=== PATIENT | female | born 1945 | race Caucasian/White ===

== ENCOUNTER → 2024-08-13 11:57 | Outpatient (REF) | payer OTHER, SELFPAY | LOC: HWWDC 11:57 | PROVIDERS: ATTENDING PHYSICIAN Family Medicine | DX: Z12.31 Encounter for screening mammogram for malignant neoplasm of breast (principal) | CPT/HCPCS: 77063; 77067 ==

== ENCOUNTER → 2024-12-26 11:48 | Outpatient (REF) | payer OTHER, SELFPAY | LOC: RAD 11:48 | PROVIDERS: ATTENDING PHYSICIAN Registered Nurse; FAMILY PHYSICIAN Family Medicine | DX: M25.561 Pain in right knee (principal); W10.9XXA Fall (on) (from) unspecified stairs and steps, initial encounter; M54.2 Cervicalgia | CPT/HCPCS: 72040; 73564 ==

== ENCOUNTER 2025-01-01 18:39 | Emergency (ER) | payer OTHER, SELFPAY ==
[2025-01-01 19:10] VITALS: BP 137/70
[2025-01-01 19:28] LABS: % Basophils 0.6 % (0-2); % Eosinophils 1.2 % (0-6); % Immature Granulocytes 0.5 % (0-0.5); % Lymphocytes 10.6 % (20.5-51.1); % Monocytes 12.3 % (1.7-9.3); % Neutrophils 74.8 % (42.2-75.2); Absolute Basophils 0.1 10^3/uL (0-0.2); Absolute Eosinophils 0.1 10^3/uL (0-0.7); Absolute Immature Granulocytes 0.1 10^3/uL (0-0.05); Absolute Lymphocytes 1.2 10^3/uL (1.2-3.4); Absolute Monocytes 1.4 10^3/uL (0.1-0.6); Absolute Neutrophils 8.3 10^3/uL (1.4-6.5); Hematocrit 35.8 % (37.0-47.0); Hemoglobin 12.3 g/dL (12.0-16.0); Mean Corp Hgb Conc. 34.4 g/dL (33.0-37.0); Mean Corpuscular Hgb 32.5 pg (27.0-31.0); Mean Corpuscular Volume 94.5 fL (81.0-99.0); Mean Platelet Volume 8.4 fL (7.4-10.4); Nucleated Red Blood Cells % 0 %; Platelet Count 379 10^3/uL (130-400); Red Blood Cell Count 3.79 10^6/uL (4.20-5.40); Red Cell Dist. Width 12.7 % (11.5-14.5); White Blood Cell Count 11.1 10^3/uL (4.8-10.8)
[2025-01-01 19:47] LABS: ALT (SGPT) 13 U/L (0-35); AST (SGOT) 20 U/L (14-36); Alkaline Phosphatase 87 U/L (38-126); Blood Urea Nitrogen 19 mg/dl (7-17); Carbon Dioxide 26 mmol/L (22-30); Chloride 100 mmol/L (98-107); Glucose 143 mg/dl (70-99); Potassium 4.4 mmol/L (3.5-5.1); Sodium 135 mmol/L (135-145); Total Protein 6.7 g/dl (6.3-8.2); eGFR > 60.00
[2025-01-01 22:12] VITALS: BP 138/64
[2025-01-01 22:43] LABS: Erythrocyte Sed Rate 31 mm/hour (0-20)
--- NOTE | 2025-01-01 22:50 | ED.GENMED ---
History of Present Illness
General
Chief Complaint: Musculo-Skeletal Complaint
Source: patient
Time Seen by Provider: 01/01/25 22:20
History of Present Illness
History of Present Illness:
79 yr old female presents to the ED with complaints of right knee pain. The patient had a knee replacement performed here by Dr. Leung on December 08 and did well. Then, 2 weeks ago she 'fell' also described as 'slid' down approximately 7 steps
landing on her back. She had mild pain in the right knee since then described as feeling 'a little bit stiffer', but was still able to perform therapy. However, last night, she noted that the pain in her right knee has gotten progressively worse
such that she has difficulty walking, getting up off the toilet, etc. without assistance. She has taken pain medication with moderate relief of symptoms. She describes the pain level as 1-2 at full extension described as 'achy', but significantly
worse with flexion. She thought it looked a little bit red and felt warm earlier today but feels that that has improved upon inspection now. She denies fever, chills, diaphoresis, nausea, vomiting, numbness, tingling, or other complaints.
Past History
Past History
ED Past Medical History: HTN and Hypercholesterolemia
ED Past Surgical History: Orthopedic
Social History
Tobacco: Non-smoker
Alcohol: None
Drug: None
Personal:
Living: with family
Phy Exam
Physical Exam
Physical Exam:
GENERAL: Alert , in no apparent distress
EYE: pupils equal and reactive
NECK: Supple, no significant adenopathy.
ENT: o/p clr, mmm.
CARDIAC: Regular rate and rhythm .
LUNGS: Clear breath sounds bilaterally, no acute respiratory distress, no wheezes/rales/rhonchi
NEUROLOGICAL: Alert and oriented, no focal neuro deficits
SKIN: Warm and dry, skin intact. Incision with steristips in place, no drainage/blood.
MUSCULOSKELETAL: Mild edema R knee area (expected postop), well perfused no warmth felt, min erythema. No ttp noted. Pt has limited flexion due to pain.
PSYCH: Normal and appropriate interaction.
Course
Orders/Labs/Results
Orders:
Orders
01/01/25 18:44
Knee, Right 4 or More Views [CR Knee- Right 4 Or More View*] Stat
Comment:
Reason For Exam: pain
01/01/25 19:20
C-Reactive Protein Urgent
Comment: ADD ON
Complete Blood Count/With Diff Urgent
Comprehensive Metabolic Panel Urgent
Erythrocyte Sed Rate Urgent
Comment: ADD ON
01/01/25 22:22
Add On- LAB Urgent
Tests Added?: CRP, ESR
01/01/25 23:25
Knee Immobilizer Right-Treatme ONCE
Oxycodone [Roxicodone] 5 mg PO NOW STA
Abnormal Lab Results
01/01/25
19:20
WBC 11.1 H 10^3/uL
(4.8-10.8)
RBC 3.79 L 10^6/uL
(4.20-5.40)
Hct 35.8 L %
(37.0-47.0)
MCH 32.5 H pg
(27.0-31.0)
Abs Immat Gran (auto) 0.1 H 10^3/uL
(0-0.05)
Absolute Neuts (auto) 8.3 H 10^3/uL
(1.4-6.5)
Absolute Monos (auto) 1.4 H 10^3/uL
(0.1-0.6)
Lymphocytes % 10.6 L %
(20.5-51.1)
Monocytes % 12.3 H %
(1.7-9.3)
ESR 31 H mm/hour
(0-20)
BUN 19 H mg/dl
(7-17)
Glucose 143 H mg/dl
(70-99)
C-Reactive Protein 84.20 H mg/L
(0.0-10.00)
01/01/25 19:20
01/01/25 19:20
Vital Signs
Initial and Last Documented VS:
Initial Vital Signs
Temp Pulse Resp BP Pulse Ox
100.0 F 100 18 137/70 95
01/01/25 19:10 01/01/25 19:10 01/01/25 19:10 01/01/25 19:10 01/01/25 19:10
Last Documented Vital Signs
Temp Pulse Resp BP Pulse Ox
99.2 F 83 18 131/63 97
01/01/25 22:12 01/01/25 23:57 01/01/25 19:10 01/01/25 23:57 01/01/25 23:57
*Critical Care Note
Total Time (30-74mins, 75-104mins- exclusive of procedures): Not Applicable
Update Note
Update Note:
Patient presents to the Emergency Department with ____knee pain
Number and Complexity of Problems Addressed at the Encounter
� Chronic conditions affecting care:
� Acute Exacerbation and/or Progression of Chronic Illness:
� Differential Diagnosis includes: But not limited to muscular spasm, muscle strain, ligament strain, septic arthritis, fracture, etc. etc.
Amount and/or Complexity of Data to be Reviewed and Analyzed
� I performed an independent evaluation of and my interpretation is:
EKG:
CT:
Xrays: Read by me unremarkable
Laboratory Studies: Generally unremarkable, ESR and CRP elevated as would be expected postoperatively
Other:
� Review of other/old records reveals:
� Clinical information was obtained by an independent historian:
� Prescriptions/Medications Considered but not given:
� Further testing considered but not performed:
Risk of Complications and/or Morbidity or Mortality of Patient Management
� Social determinants of health affecting care:
� Discussion with other providers (PCP, Hospitalists, Consultants, etc):
� Escalation of care including admission/observation vs risk of discharge considered: Case discussed with Dr. Hills, I also sent him photos of patient's knee and my exam here as well as all the x-rays. Labs and vitals reviewed
as well. We both have a very low and for septic arthritis, and would not recommend arthrocentesis or other testing at this time. Rather, he recommends follow-up with him tomorrow morning between 9 and 10 AM in the ambulatory center and apply a
knee brace in the meantime. Patient is extremely nontoxic and well-appearing and agreeable to this plan.
ED Attending Note
-
Portions of this chart may have been created with voice recognition software.� Occasional wrong word or��sound alike� substitutions may have occurred due to the inherent limitations of voice recognition software.
Discharge Plan
Departure
Patient Disposition: Home (Routine Discharge)
Date of Disposition: 01/01/25
Time of Disposition: 23:28
Patient with high blood pressure during this ER visit?: Yes
Condition: Good
Discharge Problem:
Acute knee pain
Instructions: Knee Immobilizer (DC), Knee Pain (DC), BLOOD PRESSURE
Prescriptions:
No Action
Aspir 81
81 mg PO BID
pravastatin [Pravachol] 40 MG tablet
40 mg PO DAILY
Hydrochlorothiazide
20 mg PO DAILY
ondansetron 4 MG tablet,disintegrating
4 mg PO TIDPRN PRN (Reason: nausea) Qty: 12 0RF
Referrals:
Jn Wolff CRNP [Family Provider] -
Activity Restrictions/Additional Instructions:
PLEASE SEE DR. HILLS IN THE AMBULATORY CENTER BETWEEN 9 AND 10 AM TOMORROW MORNING, SUNDAY. HE WILL BE EXPECTING YOU AT THAT TIME. IF YOU DEVELOP FEVER, CHILLS, SWEATS, INCREASING PAIN, REDNESS, DRAINAGE, OR OTHER WORRISOME SIGNS, PLEASE RETURN
TO THE ER IMMEDIATELY.
Interventions
Interventions:
*Risk Screen - Suicide Last Done: 01/01/25 19:15
*General Assessment Last Done: 01/01/25 22:06
*Neglect/Abuse Screening Last Done: 01/01/25 19:15
*ED- Fall Risk Assessment Last Done: 01/01/25 22:06
*ED COVID-19 Vaccine History Last Done: 01/01/25 22:06
*Nursing Disposition Last Done: 01/02/25 00:18
ED-Musculoskeletal Assessment Last Done: 01/01/25 22:17
Discharge Date and Time
Discharge Date/Time: 01/02/25 00:18
Print Language: ANDORRAN
[2025-01-01] MEDS: ROXICODONE 5 MG PO (23:55)
[2025-01-01 23:57] VITALS: BP 131/63
== END 2025-01-02 00:18 | disposition home or self-care (01) ==
LOC: EMR 18:39
PROVIDERS: Student in an Organized Health Care Education/Training Program; EMERGENCY PHYSICIAN Emergency Medicine; FAMILY PHYSICIAN Registered Nurse
DX: M25.561 Pain in right knee (principal); Z96.651 Presence of right artificial knee joint; I10 Essential (primary) hypertension; E78.00 Pure hypercholesterolemia, unspecified
CPT/HCPCS: 29505; 99284; 73564; 80053; 85025; 85652; 86140

== ENCOUNTER → 2025-01-02 10:29 | Outpatient (REF) | payer OTHER, SELFPAY ==
[2025-01-02 11:41] LABS: Body Fluid Mononuclear 5.3 %; Body Fluid Polymorphonuclear 94.7 %; Body Fluid WBC 52860 /CUMM
[2025-01-02 11:52] LABS: Body Fluid Second Tech AMA
== END ==
LOC: REG 10:29
PROVIDERS: ATTENDING PHYSICIAN Specialist; FAMILY PHYSICIAN Family Medicine
DX: M25.461 Effusion, right knee (principal)
CPT/HCPCS: 87015; 87070; 87077; 87186; 87205; 89051; 89060

== ENCOUNTER 2025-01-02 12:34 | Inpatient (IN) | payer OTHER, SELFPAY ==
[2025-01-02] VITALS (13 sets, daily range): BP systolic 116–153; BP diastolic 58–91; BMI 26.6
[2025-01-02] MEDS: TYLENOL 650 MG PO ×2 (13:14→19:42)
[2025-01-02] MEDS: NORMOSOL-R/PLASMALYTE-A 1000 IV (13:15)
[2025-01-02] MEDS: SUBLIMAZE 50 MCG IV (17:17)
[2025-01-02] MEDS: SUBLIMAZE 25 MCG IV ×3 (17:31→18:24)
[2025-01-02] MEDS: COLACE 100 MG PO (19:42)
[2025-01-02] MEDS: SENOKOT 17.2 MG PO (19:42)
[2025-01-02] MEDS: ROXICODONE 10 MG PO (19:43)
[2025-01-02] MEDS: DILAUDID 0.5 MG IV (21:11)
[2025-01-02] MEDS: BACTROBAN 2% OINTMENT 1 APPLIC NASAL (21:12)
[2025-01-03] MEDS: TYLENOL 650 MG PO ×6 (00:46→21:53)
[2025-01-03] MEDS: ROXICODONE 10 MG PO ×6 (00:47→21:53)
[2025-01-03 03:05] VITALS: BP 115/64
[2025-01-03 07:20] VITALS: BP 140/74
[2025-01-03] MEDS: THERAGRAN 1 TABLET PO (09:13)
[2025-01-03] MEDS: SENOKOT 17.2 MG PO ×2 (09:13→20:17)
[2025-01-03] MEDS: COLACE 100 MG PO ×2 (09:14→20:17)
[2025-01-03] MEDS: ORETIC 25 MG PO (09:14)
[2025-01-03] MEDS: BACTROBAN 2% OINTMENT 1 APPLIC NASAL ×2 (09:14→21:54)
[2025-01-03] MEDS: ASPIRIN 325 MG PO (09:14)
[2025-01-03] MEDS: PRAVACHOL 40 MG PO (09:14)
--- NOTE | 2025-01-03 09:52 | CM ---
ict development manager reviewed patient's chart and met with patient and daughter at bedside, patient lives with her spouse in a 2 story home with one step to enter, patient is independent with adl's and ambulates with a walker following a recent right total
knee arthroplasty, patient reports that she has visiting nurse coming to home but is not sure of the agency, options reviewed and patient is agreeable to [facility], referral sent to [facility].
PCP: Dr Mayo with [facility]
Pharmacy: [facility] in [place]
Plan; Home with [facility] when stable.
--- NOTE | 2025-01-03 10:05 | CON.ID ---
Consultation
-
Date/Time Consultation Requested: 01/02/2025 1539
Date/Time Consultation Performed: 01/03/2025 0936
Requesting Provider: Familia
Performing Provider: Cheri
Reason for Consultation: Right knee PJI
Chief Complaint / Past History
History of Present Illness
Felicia Rivera is a 79-year-old female being evaluated at the request of Dr. Robertson in regards to a right knee prosthetic joint infection. History is obtained from chart review, on the patient interview.
The patient reports she underwent a right knee replacement on 12/08/2024. She notes that the postop period she did well, but approximate 2 weeks ago she 'fell' versus 'slid' down approximately 7 steps at home and landed on her back. She notes mild
right knee pain since that time, but also admitted to some shoulder neck pain also. Since the fall, she has noted some increasing stiffness of the right knee, but on 12/31 she noted marked increase in pain and difficulty with ambulation. She also
notes that the knee has been progressively red and swollen since the fall. She denies any fevers or chills. She presented to the emergency room on 01/01 for further evaluation. Imaging was performed which was nonrevealing, but she did have a
low-grade leukocytosis. She was seen by Orthopedics yesterday and joint aspiration was performed. Because of increased cell count, she was taken to the OR yesterday for washout and poly exchange. Infectious Diseases is asked to comment on further
antibiotic management.
Past History
Additional Past Medical History:
Osteopenia
HTN
HLD
Hx left breast ductal adenocarcinoma
Additional Past Surgical History:
Left knee replacement
Right knee replacement (12/04/2024)
Left lumpectomy
Allergy History:
latex [Latex] Allergy (Verified 01/02/25 12:33)
Rash
hayfever Allergy (Uncoded 01/02/25 12:36)
nasal symptoms
Medications Reviewed: Yes
Current Antibiotics:
None
Social History
Tobacco: Non-Smoker
Alcohol: None
Drug: None
Living: With Family
Employment: Retired
Family History
Family History: Not Pertinent
Review of Systems
Vital Signs
Temp Pulse Resp BP Pulse Ox
97.6 F 63 18 140/74 98
01/03/25 07:20 01/03/25 07:20 01/03/25 07:20 01/03/25 07:20 01/03/25 07:20
Physical Exam
Physical Exam
Constitutional: No Acute Distress, Comfortable and Non-toxic
Eyes: No Conjunctival Hemorrhage and Sclera Anicteric
Oral: No Thrush and No Ulcers
Cardiovascular: Regular Rate and S1/S2; Negative S3/S4 or Murmur
Pulmonary: Clear; Negative Wheezes, Rales or Rhonchi
Gastrointestinal: Soft, Non Tender, Non Distended and Normal Bowel Sounds
Genito-Urinary: Negative Jackman
Extremities: Edema (RLE), Erythema (Right knee area) and Pulses; Negative Venous Insufficiency
Musculoskeletal: Joint Swelling (Right knee)
Skin: Warm and Dry; Negative Rash or Jaundice
Neurological: Awake and Alert
Psychological: Calm
.
Microbiology Results
Micro:
01/02/25 17:00 Body Fluid Culture - Preliminary
Knee - Right Gram Stain - GNR's
01/01/25
19:20
ESR 31 H
C-Reactive Protein 84.20 H
Right knee aspirate
01/02/25
09:53
Fluid WBC 30080
Fluid Mononuclear Cell 5.3
Fl Polymorphonucl Cell 94.7
Crystals none seen
Imaging:
01/02/25 x-ray right knee: Total right knee arthroplasty in anatomic position. No fracture, dislocation or focal bony destructive process.
Assessment / Plan
Right knee PJI
- aspirate cultures and fluid from washout with GNR's
Leukocytosis
Elevated CRP
Recent right knee replacement
Osteopenia
HTN
HLD
Hx left breast ductal adenocarcinoma
Recommendations:
Begin cefepime 1 gm IV q6h
Await further culture data to guide antimicrobial selection and potential de-escalation.
Monitor white count and temperature curve.
Patient counseled that she will likely need a prolonged course of IV antibiotics (6 weeks).
PICC line once further data returned.
Care Review
Plan reviewed with: Other Provider (Ortho)
--- NOTE | 2025-01-03 11:04 | W.PN.ORTHO ---
Today's Communication / Plan
-
79-year-old female POD #1 RIGHT Knee I&D with Poly Exchange 01/02/[address] Robertson.
- WBAT RLE with use of walker for ambulatory assistance.
- Mepilex dressing clean, dry, and intact.
- Aspirin 325mg once daily x 4 weeks for DVT prophylaxis.
- PT/OT as tolerated.
- Ice therapy and elevation for edema control. Pain medication regimen ordered. Home medications ordered.
- Knee aspiration cultures and intra-operative cultures (+) GNR's. Currently on Cefepime 1 gm IV q6h. Appreciate ID.
- Orthopedic surgery will continue to follow along.
Assessment
.
Distal Motor Intact: Yes
Dressing:
Mepilex dressing clean, dry, and intact.
Calf is soft and nontender to palpation.
Able to plantarflex and dorsiflex left ankle.
Sensation intact to light touch. NVI distally.
Assessment:
POD #1 RIGHT Knee I&D with Poly Exchange 01/02/[address] Robertson.
Plan
.
Surgery / Date: 01/02/2025 RIGHT Knee I&D with Poly Exchange
DVT Prophylaxis: Aspirin
Activity:
Out of bed.
PT/OT.
Discharge Plan: Other
Discharge Information:
Appreciate CM.
Subjective
.
.:
Patient resting comfortably in bed. Reports that her pain is well-controlled. Reports that she is feeling better than yesterday. Denies any new complaints or concerns at this time. Denies any CP or SOB.
Vital Signs and Labs
.
Vital Signs and Labs:
Temp Pulse Resp BP Pulse Ox
97.6 F 63 18 140/74 98
01/03/25 07:20 01/03/25 07:20 01/03/25 07:20 01/03/25 07:20 01/03/25 07:20
Non-invasive Hgb result: 13.1
[2025-01-03 11:10] VITALS: BP 143/76
[2025-01-03 11:18] LABS: % Basophils 0.1 % (0-2); % Immature Granulocytes 0.3 % (0-0.5); % Lymphocytes 6.5 % (20.5-51.1); % Monocytes 6.6 % (1.7-9.3); % Neutrophils 86.5 % (42.2-75.2); Absolute Lymphocytes 0.9 10^3/uL (1.2-3.4); Absolute Monocytes 0.9 10^3/uL (0.1-0.6); Absolute Neutrophils 11.9 10^3/uL (1.4-6.5); Hemoglobin 10.9 g/dL (12.0-16.0); Mean Corp Hgb Conc. 34.1 g/dL (33.0-37.0); Mean Corpuscular Hgb 32.6 pg (27.0-31.0); Mean Corpuscular Volume 95.8 fL (81.0-99.0); Mean Platelet Volume 8.8 fL (7.4-10.4); Nucleated Red Blood Cells % 0 %; Platelet Count 397 10^3/uL (130-400); Red Blood Cell Count 3.34 10^6/uL (4.20-5.40); Red Cell Dist. Width 12.7 % (11.5-14.5); White Blood Cell Count 13.8 10^3/uL (4.8-10.8)
[2025-01-03] MEDS: CELEXA 5 MG PO (12:57)
[2025-01-03] MEDS: MAXIPIME 1000 MG IV ×2 (13:04→18:14)
[2025-01-03] MEDS: STERILE WATER FOR INJECTION 10 ML IV ×2 (13:15→18:15)
[2025-01-03 15:30] VITALS: BP 161/85
[2025-01-03 15:38] VITALS: BP 161/81; BP 167/77; PULSE 76; O2SAT 98
[2025-01-03] MEDS: LIDOCAINE 4% PATCH 1 PATCH TOPICAL (21:52)
[2025-01-03 23:00] VITALS: BP 132/70
[2025-01-04] MEDS: STERILE WATER FOR INJECTION 10 ML IV ×2 (00:21→06:12)
[2025-01-04] MEDS: MAXIPIME 1000 MG IV ×2 (00:21→06:11)
[2025-01-04] MEDS: TYLENOL PO (00:33)
[2025-01-04] MEDS: TYLENOL 650 MG PO ×6 (02:09→23:06)
[2025-01-04] MEDS: ROXICODONE 10 MG PO ×4 (02:09→22:00)
[2025-01-04] MEDS: ROXICODONE 5 MG PO (06:13)
[2025-01-04 07:13] VITALS: BP 139/63
--- NOTE | 2025-01-04 08:21 | W.PN.ORTHO ---
Today's Communication / Plan
-
79-year-old female POD #2 RIGHT Knee I&D with Poly Exchange 01/02/[address] Robertson.
- WBAT RLE with use of walker for ambulatory assistance.
- Mepilex dressing clean, dry, and intact.
- Aspirin 325mg once daily x 4 weeks for DVT prophylaxis.
- Hgb this AM pending. Yesterday, 10.9.
- PT/OT as tolerated.
- Ice therapy and elevation for edema control. Pain medication regimen ordered. Home medications ordered.
- Appreciate CM regarding D/C planning.
- Knee aspirate cultures 01/02/2025 revealing rare Serratia marcescens. Intra-operative preliminary gram stain from blood culture bottles revealing (+) Gram Negative Bacilli. Per ID, transitioning from Cefepime to Ceftriaxone 2g IV q 24 hours per ID.
Planning for 6-week course of IV abx followed by a 6-month course of oral antibiotics, +/- indefinite suppression. Appreciate ID. PICC line ordered.
- Orthopedic surgery will continue to follow along.
Assessment
.
Distal Motor Intact: Yes
Dressing:
Mepilex dressing clean, dry, and intact.
Calf is soft and nontender to palpation.
Able to plantarflex and dorsiflex right ankle.
Sensation intact to light touch. NVI distally.
Assessment:
POD #2 RIGHT Knee I&D with Poly Exchange 01/02/[address] Robertson.
Plan
.
Surgery / Date: 01/02/2025 RIGHT Knee I&D with Poly Exchange
DVT Prophylaxis: Aspirin
Activity:
Out of bed.
PT/OT.
Discharge Plan: Other
Discharge Information:
Appreciate CM.
Subjective
.
.:
Patient resting comfortably in bedside chair. Was able to work with PT/OT yesterday. Reports pain to her right knee, however feeling better this morning and controlled with current regimen. She denies any new complaints or concerns at this time.
She denies any CP, SOB, or any other medical complaints.
Vital Signs and Labs
.
Vital Signs and Labs:
Temp Pulse Resp BP Pulse Ox
98.3 F 73 18 132/70 98
01/03/25 23:00 01/03/25 23:00 01/03/25 23:00 01/03/25 23:00 01/03/25 23:00
Non-invasive Hgb result: 13.1
[2025-01-04] MEDS: ORETIC 25 MG PO (08:41)
[2025-01-04] MEDS: PRAVACHOL 40 MG PO (08:41)
[2025-01-04] MEDS: THERAGRAN 1 TABLET PO (08:41)
[2025-01-04] MEDS: COLACE 100 MG PO ×2 (08:41→20:31)
[2025-01-04] MEDS: SENOKOT 17.2 MG PO ×2 (08:42→20:31)
[2025-01-04] MEDS: CELEXA 5 MG PO (08:42)
[2025-01-04] MEDS: ASPIRIN 325 MG PO (08:43)
[2025-01-04 09:08] LABS: % Basophils 0.6 % (0-2); % Eosinophils 1.6 % (0-6); % Immature Granulocytes 0.5 % (0-0.5); % Lymphocytes 15.9 % (20.5-51.1); % Monocytes 7.2 % (1.7-9.3); % Neutrophils 74.2 % (42.2-75.2); Absolute Basophils 0.1 10^3/uL (0-0.2); Absolute Eosinophils 0.2 10^3/uL (0-0.7); Absolute Immature Granulocytes 0.1 10^3/uL (0-0.05); Absolute Lymphocytes 1.8 10^3/uL (1.2-3.4); Absolute Monocytes 0.8 10^3/uL (0.1-0.6); Absolute Neutrophils 8.2 10^3/uL (1.4-6.5); Hemoglobin 10.8 g/dL (12.0-16.0); Mean Corp Hgb Conc. 32.7 g/dL (33.0-37.0); Mean Corpuscular Hgb 31.5 pg (27.0-31.0); Mean Corpuscular Volume 96.2 fL (81.0-99.0); Mean Platelet Volume 8.5 fL (7.4-10.4); Nucleated Red Blood Cells % 0 %; Platelet Count 426 10^3/uL (130-400); Red Blood Cell Count 3.43 10^6/uL (4.20-5.40); Red Cell Dist. Width 12.8 % (11.5-14.5); White Blood Cell Count 11.1 10^3/uL (4.8-10.8)
--- NOTE | 2025-01-04 12:22 | W.PN.ID1 ---
Date of Service
Date of Service: January 04, 2025
Today's Communication
Continue antibiotics. See below�
Assessment / Plan
Right knee PJI 2*Serratia marcescens
Leukocytosis
Elevated CRP
Recent right knee replacement
Osteopenia
HTN
HLD
Hx left breast ductal adenocarcinoma
Recommendations:
Bacterial isolate sensitivities reviewed.
Transition to ceftriaxone 2 g IV every 24 hours
Patient counseled that she will need a 6-week course of antibiotics followed by a 6-month course of oral antibiotics, +/- indefinite suppression
Monitor white count and temperature curve.
PICC line ordered. Home infusion sheet placed on paper chart.
and family updated at bedside. Answered all questions.
Dragon insert single line
Chief Complaint
-: Other (Right knee PJI)
Subjective / Review of Systems
Review of Systems: No Fever and No Chills
Vital Signs / Physical Exam
Vital Signs
Vital Signs
Temp Pulse Resp BP Pulse Ox
98.2 F 71 16 139/63 98
01/04/25 07:13 01/04/25 07:13 01/04/25 07:13 01/04/25 07:13 01/04/25 07:13
Physical Exam
Constitutional: No Acute Distress, Comfortable and Non-toxic
Eyes: Sclera Anicteric
Cardiovascular: S1/S2; Negative S3/S4
Pulmonary: Non Labored
Gastrointestinal: Soft and Non Tender
Musculoskeletal: Other (Right leg and compression stocking. Right knee dressing intact without strikethrough.)
Neurological: Awake and Alert
Psychological: Calm
Objective Data
Lab Data
Lab Results
01/04/25 08:48
Most recent labs reviewed.
Micro Results:
01/02/25 17:00 Body Fluid Culture - Preliminary
Knee - Right Serratia marcescens
Gram Stain - Final
1. Serratia marcescens
M.I.C. RX
--------- ---
Amoxicillin/Potas. Clavulanate >16/8 R
Ampicillin >16 R
Ampicillin/Sulbactam >16/8 R
Aztreonam <=4 S
Cefazolin >16 R
Cefepime <=2 S
Ceftazidime <=1 S
Ceftriaxone <=1 S
Ertapenem <=0.5 S
Ciprofloxacin <=0.25 S
Gentamicin <=2 S
Meropenem <=1 S
Piperacillin/Tazobactam <=8 S
Tetracycline >8 R
Tobramycin 8 I
Trimethoprim/Sulfamethoxazole <=2/38 S
Imaging:
01/02/25 x-ray right knee: Total right knee arthroplasty in anatomic position. No fracture, dislocation or focal bony destructive process.
[2025-01-04] MEDS: MAXIPIME IV (13:06)
[2025-01-04] MEDS: STERILE WATER FOR INJECTION IV (13:06)
[2025-01-04] MEDS: ROCEPHIN 2000 MG IV (14:08)
[2025-01-04] MEDS: STERILE WATER FOR INJECTION 20 ML IV (14:16)
[2025-01-04 15:17] VITALS: BP 160/76
--- NOTE | 2025-01-04 23:14 | PTCARENOTE ---
Received pt from RN @ this time, Pt asleep in bed, rise and fall of chest noted, pt appears in no distress, RN reported scheduled medication given for pain. Call san within reach, bed in lowest position last VS noted in chart.
[2025-01-04 23:15] VITALS: BP 123/59
[2025-01-05] MEDS: ROXICODONE 10 MG PO ×5 (02:59→23:43)
[2025-01-05] MEDS: TYLENOL 650 MG PO ×6 (03:00→23:43)
[2025-01-05 07:35] VITALS: BP 139/75
[2025-01-05] MEDS: COLACE 100 MG PO ×2 (07:59→20:25)
[2025-01-05] MEDS: ASPIRIN 325 MG PO (07:59)
[2025-01-05] MEDS: THERAGRAN 1 TABLET PO (07:59)
[2025-01-05] MEDS: SENOKOT 17.2 MG PO ×2 (08:00→20:25)
[2025-01-05] MEDS: PRAVACHOL 40 MG PO (08:00)
[2025-01-05] MEDS: CELEXA 5 MG PO (08:01)
--- NOTE | 2025-01-05 08:09 | W.PN.ORTHO ---
Today's Communication / Plan
-
Appreciate ID, continue Tx- PICC in, currently Rocephin- plan for 6 weeks following by 6 month course of suppressive therapy
Appreciate CM regarding D/C planning (SNF vs. home based on help with IV ABX)
Hgb 10.8 this AM
Dressing may be rememoved in 7-10 days
Aspirin 325mg daily x 4 weeks for DVT ppx
PT/OT, WBAT on walker/assistance
Ice/elevation for edema control. Pain medication prn.
If Dispo can be arranged she may D/c today, either SNF or home
D/c plan complete short of ID and CM finalizing their plan
This patient has a medical condition which requires positioning of the body in ways not feasible with an ordinary bed. Also requires body positioning in ways not feasible with an ordinary bed. patient also requires frequent changes in body
position and has an immediate need for a change in position and would benefit from a hospital bed
Assessment
.
Distal Motor Intact: Yes
Dressing:
Clean, dry and intact. Aquacel dressing in place with no strikethrough noted
Assessment:
POD#3 Right knee I&D with poly exchange
Overall doing/feeling well
Calf soft, nontender
Knee aspirate cultures January 09 revealing rare Serratia marcescens
Plan
.
Surgery / Date: RIGHT Knee I&D w/ Poly Exchange January 09 ([facility])
DVT Prophylaxis: Aspirin
Activity:
Out of bed. WBAT RLE on walker/assistance
PT/OT
Discharge Plan: Other (Appreciate CM)
Subjective
.
.:
Patient seated comfortably bedside ready to use the bathroom. endorses moderate pain right knee
Vital Signs and Labs
.
Vital Signs and Labs:
Lab Results
01/04/25 08:48
Temp Pulse Resp BP Pulse Ox
98.4 F 88 18 123/59 96
01/04/25 23:15 01/04/25 23:15 01/04/25 23:15 01/04/25 23:15 01/04/25 23:15
Non-invasive Hgb result: 9.8
[2025-01-05] MEDS: ORETIC 25 MG PO (08:13)
--- NOTE | 2025-01-05 09:17 | CM ---
Addendum entered by Yaneth Barclay RN 01/05/25 14:55:
Correction
[place]
[phone]
Addendum entered by Yaneth Barclay RN 01/05/25 13:47:
CM spoke with patient and she is agreeable to a home discharge. Sherry from [facility] stated that patient can be discharged tomorrow after her 2pm dose. Patient will be taught at home. Patient is agreeable to plan.
CM faxed [facility] with requests for hospital bed.
CM updated Socorro at [facility] with plan for discharge on 01/06.
PLAN: home with [facility], and [facility].
Addendum entered by Yaneth Barclay RN 01/05/25 11:47:
[facility] is unable to accept as it's the inappropriate level of care. CM left message for daughter to discuss alternative plan.
Daughter
[place]
[phone]
Addendum entered by Yaneth Barclay RN 01/05/25 09:58:
Cm spoke with patient's daughter who is requesting Acute Rehab at [facility]. Patient was advised that she may not qualify for acute rehab. CM will send referral via [facility].
Original Note:
CM reviewed medical records. Plan for home IV antibiotics. CM confirmed that [facility] is able to service patient for home IV antibiotics. CM will sent script and referral via [facility] to [facility].
[2025-01-05 09:46] LABS: % Basophils 0.8 % (0-2); % Eosinophils 2.1 % (0-6); % Immature Granulocytes 0.6 % (0-0.5); % Lymphocytes 10.3 % (20.5-51.1); % Monocytes 11.4 % (1.7-9.3); % Neutrophils 74.8 % (42.2-75.2); Absolute Basophils 0.1 10^3/uL (0-0.2); Absolute Eosinophils 0.3 10^3/uL (0-0.7); Absolute Immature Granulocytes 0.1 10^3/uL (0-0.05); Absolute Lymphocytes 1.2 10^3/uL (1.2-3.4); Absolute Monocytes 1.4 10^3/uL (0.1-0.6); Absolute Neutrophils 8.9 10^3/uL (1.4-6.5); Hemoglobin 10.8 g/dL (12.0-16.0); Mean Corp Hgb Conc. 33.8 g/dL (33.0-37.0); Mean Corpuscular Hgb 32.1 pg (27.0-31.0); Mean Corpuscular Volume 95.2 fL (81.0-99.0); Mean Platelet Volume 8.6 fL (7.4-10.4); Nucleated Red Blood Cells % 0 %; Platelet Count 380 10^3/uL (130-400); Red Blood Cell Count 3.36 10^6/uL (4.20-5.40); Red Cell Dist. Width 12.9 % (11.5-14.5); White Blood Cell Count 11.9 10^3/uL (4.8-10.8)
--- NOTE | 2025-01-05 10:07 | W.PN.ID1 ---
Date of Service
Date of Service: January 05, 2025
Today's Communication
Continue antibiotics.
Assessment / Plan
Right knee PJI 2* Serratia marcescens
Leukocytosis
Elevated CRP
Recent right knee replacement (12/08/2024)
Osteopenia
HTN
HLD
Hx left breast ductal adenocarcinoma
Recommendations:
Continue ceftriaxone 2 g IV every 24 hours
Patient counseled that she will need a 6-week course of antibiotics followed by a 6-month course of oral antibiotics +/- indefinite suppression
Monitor white count and temperature curve.
PICC line placed. Home infusion sheet placed on paper chart.
Will follow patient in the outpatient setting. Weekly labs ordered.
����������������������������������������������������������
Chief Complaint
-: Other (Right knee PJI)
Subjective / Review of Systems
Patient seen and examined. Reports pain in the right knee. No fevers or chills. No difficulty with antibiotics.
Vital Signs / Physical Exam
Vital Signs
Vital Signs
Temp Pulse Resp BP Pulse Ox
98.2 F 101 18 139/75 96
01/05/25 07:35 01/05/25 08:13 01/05/25 07:35 01/05/25 08:13 01/05/25 07:35
Physical Exam
Constitutional: No Acute Distress, Comfortable and Non-toxic
Eyes: Sclera Anicteric
Cardiovascular: S1/S2; Negative S3/S4
Pulmonary: Non Labored
Gastrointestinal: Soft and Non Tender
Musculoskeletal: Other (Right leg and compression stocking. Right knee dressing intact without strikethrough.)
Neurological: Awake and Alert
Psychological: Calm
Lines: PICC (Right upper extremity)
Objective Data
Lab Data
Lab Results
01/05/25 09:36
Most recent labs reviewed.
Micro Results:
01/02/25 17:00 Body Fluid Culture - Preliminary
Knee - Right Serratia marcescens
Gram Stain - Final
Fluid Cult/not urine Final 01/02/2025
Rare Serratia marcescens
Organism 1 Serratia marcescens
1. Serratia marcescens
M.I.C. RX
--------- ---
Amoxicillin/Potas. Clavulanate >16/8 R
Ampicillin >16 R
Ampicillin/Sulbactam >16/8 R
Aztreonam <=4 S
Cefazolin >16 R
Cefepime <=2 S
Ceftazidime <=1 S
Ceftriaxone <=1 S
Ertapenem <=0.5 S
Ciprofloxacin <=0.25 S
Gentamicin <=2 S
Meropenem <=1 S
Piperacillin/Tazobactam <=8 S
Tetracycline >8 R
Tobramycin 8 I
Trimethoprim/Sulfamethoxazole <=2/38 S
Imaging:
01/02/25 x-ray right knee: Total right knee arthroplasty in anatomic position. No fracture, dislocation or focal bony destructive process.
--- NOTE | 2025-01-05 10:48 | VNURNOTE ---
Home Health Liaison met with patient at bedside to discuss [facility] nurse/therapy, visits, schedule and homebound status. Explained that visits at home will be 2-3 x per week to assess and teach medical management. Patient had questions about home IV
antibiotics. Explained to patient that [facility] does not manage PICC lines or administer IV antibiotics at home. Someone at home would need to learn IV antibx administration/ [facility] would provide instruction. Patient stated she didn't think she or
her could manage IV antibx at home. Patient stated that she has a daughter who is a home health nurse at [facility] [employer] [facility]. This author inquired if daughter could assist patient - either go to patient's home or maybe patient could stay at
[facility]'s house temporarily for assist. Patient stated she could not. Patient interested in rehab. Update provided to BERT Wolfe. Referral for [facility] accepted in [facility], however, final DC dispo TBD.
--- NOTE | 2025-01-05 14:29 | VNURNOTE ---
Spoke with Emily at [facility]. She confirmed fax for hospital bed received. Also confirmed that they have hospital beds in stock. She stated insurance most likely will not cover d/t related dx. Rental cost per month = $150/month. DME co will
contact patient to obtain payment. They can deliver bed to home tomorrow. Patient's daughter updated of above by BERT Wolfe.
[2025-01-05] MEDS: STERILE WATER FOR INJECTION 20 ML IV (14:39)
[2025-01-05] MEDS: ROCEPHIN 2000 MG IV (14:41)
[2025-01-05 15:50] VITALS: BP 150/82
--- NOTE | 2025-01-05 22:45 | W.DCSUMMARY ---
Discharge Summary
Discharge Data
Date of Admission: 01/02/25
Date of Discharge: 01/06/25
-
Pending Results: No
Hospital Course
79-year-old female who is well
known to me after undergoing staged bilateral total knee
replacements. Her right knee procedure was performed on December 08,
2024. Slightly less than two days ago, she started to notice
increasing pain about her right knee. Yesterday, in the evening,
she presented to [facility]'s Emergency Department. She
was evaluated by the emergency room staff and noted to have a
temperature of 100.0, a sed rate of 37, and a white blood cell
count of 11.1. A C-reactive protein was drawn, but was not
available until much later in the evening, after patient was discharged. Discussions between
myself and the emergency room, after reviewing x-rays and
diagnostic studies, raised suspicion for knee infection.
She was instructed to follow up in the office with me this morning.
An aspiration was performed of the right knee, which showed a white
blood cell count of 52,860 with 94.7% PMN's. Based upon this and
her markedly elevated C-reactive protein of 84, it was felt that
the patient likely had an early postoperative infection of her
right total knee replacement. Treatment options were discussed with
the patient and patient elected to undergo I and D and spacer
change which was performed 01/02/[address] Robertson.
The postoperative course remained uncomplicated. The patient was seen by infectious disease and cultures from the aspiration showed Serratia marcescens. A PICC line was placed and patient tolerated antibiotic ordered Rocephin without difficulty.
At the time of discharge, the patient was noted to be tolerating a regular diet, ambulating with adherence to weightbearing and activity restrictions, able to accomplish activities of daily living at baseline level, and had pain controlled on oral
medications. Prior to discharge, the patient was provided with appropriate discharge/follow-up/return instructions, and discharge medications
Discharge Plan
-
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
Condition: Fair
Diet: No restrictions
Activity: As tolerated and With Walker
Driving Restrictions: No driving
Bathing Restrictions: OK to Shower
Blood Work: CBC, ESR, CRP
Other Services: PT and OT
Wound Care: Dressing in place 7-10 days
Referrals:
Bryan Milton, PAWilli [Specified Professional Personl] - in two weeks
UNKNOWN,NO INTERVIEW [Family Provider] -
Prescriptions:
New
citalopram 10 mg Tablet
5 mg PO DAILY Qty: 30 0RF
ceftriaxone 2 gram Recon Soln
2,000 mg IV Q24H Qty: 45 0RF
Continued
pravastatin [Pravachol] 40 MG tablet
40 mg PO DAILY
Hydrochlorothiazide
20 mg PO DAILY
multivitamin Tablet
1 tab PO DAILY
aspirin 325 mg Tablet
325 mg PO DAILY
oxycodone 5 mg Capsule
5 mg PO Q4H PRN (Reason: pain)
naproxen sodium [Aleve] 220 mg Capsule
220 mg PO BID
Discharge Orders:
Discharge Patient (As Directed); Ordered 01/06/25
Ordered By: Bryan Milton
Discharge Date and Time
Print Language: MONGOLIAN
[2025-01-05 23:21] VITALS: BP 130/75
[2025-01-06] MEDS: TYLENOL 650 MG PO ×3 (03:51→12:13)
[2025-01-06] MEDS: ROXICODONE 10 MG PO ×2 (03:51→11:36)
[2025-01-06 07:10] VITALS: BP 133/74
--- NOTE | 2025-01-06 08:22 | W.PN.ORTHO ---
Today's Communication / Plan
-
DC orders placed for this afternoon
Appreciate ID, continue Tx- PICC in, currently Rocephin- plan for 6 weeks following by 6 month course of suppressive therapy
Appreciate CM regarding D/C planning (SNF vs. home based on help with IV ABX)
Dressing may be rememoved in 7-10 days
Aspirin 325mg daily x 4 weeks for DVT ppx
PT/OT, WBAT on walker/assistance
Ice/elevation for edema control. Pain medication prn.
This patient has a medical condition which requires positioning of the body in ways not feasible with an ordinary bed. Also requires body positioning in ways not feasible with an ordinary bed. patient also requires frequent changes in body
position and has an immediate need for a change in position and would benefit from a hospital bed
Assessment
.
Distal Motor Intact: Yes
Dressing:
Clean, dry and intact.
Plan
.
Surgery / Date: RIGHT Knee I&D w/ Poly Exchange January 09 ([facility])
Activity:
Out of bed.
PT/OT
Subjective
.
.:
Patient resting comfortably.
Vital Signs and Labs
.
Vital Signs and Labs:
Lab Results
01/05/25 09:36
Temp Pulse Resp BP Pulse Ox
98.7 F 75 15 133/74 99
01/06/25 07:10 01/06/25 07:10 01/06/25 07:10 01/06/25 07:10 01/06/25 07:10
Non-invasive Hgb result: 11.6
[2025-01-06] MEDS: PRAVACHOL 40 MG PO (08:32)
[2025-01-06] MEDS: ASPIRIN 325 MG PO (08:33)
[2025-01-06] MEDS: SENOKOT 17.2 MG PO (08:33)
[2025-01-06] MEDS: CELEXA 5 MG PO (08:33)
[2025-01-06] MEDS: ORETIC 25 MG PO (08:33)
[2025-01-06] MEDS: COLACE 100 MG PO (08:33)
[2025-01-06] MEDS: THERAGRAN 1 TABLET PO (08:33)
--- NOTE | 2025-01-06 09:19 | CM ---
Addendum entered by Yaneth Barclay RN 01/06/25 12:51:
Patient is now agreeable to discharge. CM updated Blaire at [facility] and Sherry at [facility]. CM updated [facility] Admission RN. with plan for discharge.
CM updated patient's daughter who is also agreeable to plan.
PLAN: Home with [facility], and [facility].
Addendum entered by Yaneth Barclay RN 01/06/25 11:06:
CM spoke with Blaire at [facility] ([employer] [employer]). She was updated that patient may appeal her discharge. CM sent PICC information via fax.
CM is awaiting ortho PA to speak with patient.
Original Note:
CM spoke with patient regarding discharge plan. Patient stated that she is uncomfortable going home siting uncontrolled pain, ambulatory dysfunction and concern over administering IV antibiotics. Patient stated that she feels rushed. CM discussed
that Acute Rehab would not be an appropriate level of care.
CM discussed SNF. [facility] and [facility] all are able to accept patient. Patient is refusing SNF placement at this time.
CM stated that [facility] will be available to assist and support her regarding her IV antibiotic needs. Further, [facility] will also be available for further physical therapy and occupational therapy needs.
CM updated orthopedic PA regarding patient's concerns.
CM provided patent with IMM and explained appeal process. CM highlighted appeal phone number for patient. CM updated CM management team regarding possible appeal.
CM spoke with patient's daughter to update on discharge plans. Daughter requested that she be updated with discharge plan and possible appeal.
PLAN: Pending further discussions with primary surgical team.
[2025-01-06 09:57] VITALS: BP 136/68; PULSE 95; O2SAT 99
--- NOTE | 2025-01-06 11:49 | PN.CDI ---
CDI
- -
CDI:
Physician Documentation Request
Admit Date: 01/02/25 12:34
Dear Doctor Cheri,
Please review the following and provide your response in the progress notes.
Clinical Indicators:
PN, 01/05
#Right knee PJI 2* Serratia marcescens
#Recommendations:
#...Continue ceftriaxone 2 g IV every 24 hours
#...Patient counseled that she will need a 6-week course of antibiotics
#...followed by a 6-month course of oral antibiotics +/- indefinite suppression
Fluid Cult/not urine Final 01/02/2025
Rare Serratia marcescens
Organism 1 Serratia marcescens
1. Serratia marcescens
M.I.C. RX
--------- ---
Amoxicillin/Potas. Clavulanate >16/8 R
Ampicillin >16 R
Ampicillin/Sulbactam >16/8 R
Aztreonam <=4 S
Cefazolin >16 R
Cefepime <=2 S
Ceftazidime <=1 S
Ceftriaxone <=1 S
Ertapenem <=0.5 S
Ciprofloxacin <=0.25 S
Gentamicin <=2 S
Meropenem <=1 S
Piperacillin/Tazobactam <=8 S
Tetracycline >8 R
Tobramycin 8 I
Trimethoprim/Sulfamethoxazole <=2/38 S
Based on the above and your clinical assessment, please clarify in the progress notes, the appropriate diagnosis, if significant, that supports the above abnormalities and additional evaluation, monitoring and/or treatment rendered:
Please provide further specificity for the type of drug resistance such as:
Resistance to beta-lactam antibiotics
-Specify if penicillins, cephalosporins, ESBL resistance, etc.
Resistance to vancomycin or vancomycin-related antibiotics
Resistance to quinolones and fluoroquinolones
Resistance to other single antibiotic
-Specify if sulfonamides, aminoglycosides, tetracyclines, etc.
Resistance to multiple antibiotics
Other (please specify)
Use of terms such as suspected, likely, concern for, or probable (associated with a specific diagnosis that is being evaluated, monitored, or treated as if it exists) are acceptable and can be coded in the inpatient setting, when documented at the
time of discharge.
Thank you,
Haley Clark RN BSN CCDS
CDI Specialist
Please contact via tiger text
Please use your independent medical judgment in providing your response.
--- NOTE | 2025-01-06 12:37 | W.PN.UPDATE ---
Update Note
Progress Note Update
Patient was denied acute rehab. Options were home or SNF. She was adamantly against SNF. I came back over lunch to speak with her. After that discussion she has decided to go home, instead of appealing another night in the hospital, which could very
well be denied. I have adjusted her meds post-op to Tramadol and Celebrex. She is, for the first time, feeling a little better since surgery. Discussed with Yaneth Barclay CM. Plan will be for D/c home today. Hospital bed delivery planned for 1430.
Will follow up as scheduled in 2 weeks for staple removal.
--- NOTE | 2025-01-06 13:08 | W.PN.ID1 ---
Date of Service
Date of Service: January 06, 2025
Today's Communication
Continue current antibiotics.
Assessment / Plan
Right knee PJI 2* Serratia marcescens
- isolate is resistant to aminopenicillins, first generation cephalosporins and tetracyclines.
Leukocytosis
Elevated CRP
Recent right knee replacement (12/08/2024)
Osteopenia
HTN
HLD
Hx left breast ductal adenocarcinoma
Recommendations:
Continue ceftriaxone 2 g IV every 24 hours
Patient counseled that she will need a 6-week course of antibiotics followed by a 6-month course of oral antibiotics +/- indefinite suppression
Monitor white count and temperature curve.
PICC line placed. Home infusion sheet placed on paper chart.
Will follow patient in the outpatient setting. Weekly labs ordered.
����������������������������������������������������������
Chief Complaint
-: Other (Right knee PJI)
Subjective / Review of Systems
Review of Systems: No Fever and No Chills
Vital Signs / Physical Exam
Vital Signs
Vital Signs
Temp Pulse Resp BP Pulse Ox
98.7 F 75 15 133/74 99
01/06/25 07:10 01/06/25 07:10 01/06/25 07:10 01/06/25 07:10 01/06/25 07:10
Physical Exam
Constitutional: No Acute Distress, Comfortable and Non-toxic
Eyes: Sclera Anicteric
Cardiovascular: S1/S2; Negative S3/S4
Pulmonary: Non Labored
Gastrointestinal: Soft and Non Tender
Musculoskeletal: Other (Right leg and compression stocking. Right knee dressing intact without strikethrough.)
Neurological: Awake and Alert
Psychological: Calm
Lines: PICC (Right upper extremity)
Objective Data
Lab Data
Lab Results
01/05/25 09:36
Most recent labs reviewed.
Micro Results:
01/02/25 17:00 Body Fluid Culture - Final
Knee - Right Serratia marcescens
Gram Stain - Final
Fluid Cult/not urine Final 01/02/2025
Rare Serratia marcescens
Organism 1 Serratia marcescens
1. Serratia marcescens
M.I.C. RX
--------- ---
Amoxicillin/Potas. Clavulanate >16/8 R
Ampicillin >16 R
Ampicillin/Sulbactam >16/8 R
Aztreonam <=4 S
Cefazolin >16 R
Cefepime <=2 S
Ceftazidime <=1 S
Ceftriaxone <=1 S
Ertapenem <=0.5 S
Ciprofloxacin <=0.25 S
Gentamicin <=2 S
Meropenem <=1 S
Piperacillin/Tazobactam <=8 S
Tetracycline >8 R
Tobramycin 8 I
Trimethoprim/Sulfamethoxazole <=2/38 S
Imaging:
01/02/25 x-ray right knee: Total right knee arthroplasty in anatomic position. No fracture, dislocation or focal bony destructive process.
--- NOTE | 2025-01-06 13:11 | CM ---
Cm received call from Dr. Robertson expressing concern regarding patient's safety at home. Patient's has had a history of difficult behavior noted by Dr. Robertson and other health care providers.
CM spoke with patient to confirm that patient's would be available for assistance with IV antibiotics. Patient stated that he will be available to learn, but she stated that he gets 'frustrated' very easily. Patient further stated that she
avoids 'complaining' about anything because her gets agitated and she doesn't want to upset him. Patient stated that she feels safe. Patient stated that her neighbor is an RN and a close friend. She feels that she is able to call her for
assistance.
CM updated [facility] Admission RN with concerns.
[2025-01-06 13:23] VITALS: BP 121/18
[2025-01-06] MEDS: ROCEPHIN 2000 MG IV (13:25)
[2025-01-06] MEDS: STERILE WATER FOR INJECTION 20 ML IV (13:25)
--- NOTE | 2025-01-06 15:32 | CM ---
BERT spoke with Blaire at [facility] and confirmed patient will be seen tomorrow 01/07 and medications will be delivered then.
[2025-01-06] MEDS: TYLENOL PO (16:04)
--- NOTE | 2025-01-07 00:44 | W.PN.UPDATE ---
Update Note
Progress Note Update
79-year-old female who is status post right total knee replacement on December 08, 2024. On the morning of Sunday, January 02, 2025 she presented to my office with increased pain and swelling about her right total knee replacement. She was brought to
the operating room later that day and underwent irrigation and debridement with right knee tibial spacer change for presumed infection. Cultures subsequently grew out Serratia marcescens and patient has been seen by Raymond Alonzo from infectious
disease throughout the admission. Patient has been placed on Rocephin 2 g IV every 24 hours. PICC line was placed today. Social work (Yaneth Barclay) has seen patient and explored post discharge options. Patient was denied admission to [facility] and refused half-way facility admission. She was discharged to home today with home IV antibiotics. Tonight, patient returned to the emergency room with her daughters stating she is unable to be managed safely at home. Treatment and
discharge options have been discussed in detail with the patient. One of her daughters has a personal relationship with Joan Back MD of the PM&R department at [facility] rehab. Family has requested referral be placed for [facility]. Also, if this is denied, they are now more open to half-way facility placement. Family is aware that I&D with spacer change is not always successful in this clinical situation and two-stage revision may be necessary. At
this point, we would like to continue IV antibiotics in an attempt to cure her infection without additional surgical treatment although we all realize this may not be successful.
== END 2025-01-06 16:06 | disposition home health service (06) | DRG 467 ==
LOC: 2 SOUTH 12:34
PROVIDERS: Physician Assistant Surgical; Student in an Organized Health Care Education/Training Program; ADMITTING PHYSICIAN Specialist; CONSULT PHYSICIAN Internal Medicine Infectious Disease
PROC: 0SRV0JA Replacement of Right Knee Joint, Tibial Surface with Synthetic Substitute, Uncemented, Open Approach (ICD-10-PCS; 2025-01-02)
PROC: 02H633Z Insertion of Infusion Device into Right Atrium, Percutaneous Approach (ICD-10-PCS; 2025-01-02)
PROC: 0SPV0JZ Removal of Synthetic Substitute from Right Knee Joint, Tibial Surface, Open Approach (ICD-10-PCS; 2025-01-02)
DX: T84.53XA Infection and inflammatory reaction due to internal right knee prosthesis, initial encounter (principal); Z16.24 Resistance to multiple antibiotics; Y83.1 Surgical operation with implant of artificial internal device as the cause of abnormal reaction of the patient, or of later complication, without mention of misadventure at the time of the procedure; M85.80 Other specified disorders of bone density and structure, unspecified site; I10 Essential (primary) hypertension; E78.5 Hyperlipidemia, unspecified; F32.A Depression, unspecified; G47.00 Insomnia, unspecified; Z96.652 Presence of left artificial knee joint; Z85.3 Personal history of malignant neoplasm of breast
CPT/HCPCS: 71045; 73560; 85025; 87015; 87070; 87077; 87186; 87205; 89051; 89060; 97116; 97162; 97166; 97530; 97535; C1776

== ENCOUNTER 2025-01-08 08:11 | Inpatient (IN) | payer OTHER, SELFPAY ==
[2025-01-06 19:52] VITALS: BP 157/67
[2025-01-06 19:58] VITALS: BP 157/67
[2025-01-06 20:27] LABS: % Basophils 0.7 % (0-2); % Lymphocytes 11.3 % (20.5-51.1); % Monocytes 11.3 % (1.7-9.3); % Neutrophils 73.7 % (42.2-75.2); Absolute Basophils 0.1 10^3/uL (0-0.2); Absolute Eosinophils 0.3 10^3/uL (0-0.7); Absolute Immature Granulocytes 0.1 10^3/uL (0-0.05); Absolute Lymphocytes 1.5 10^3/uL (1.2-3.4); Absolute Monocytes 1.5 10^3/uL (0.1-0.6); Absolute Neutrophils 10.1 10^3/uL (1.4-6.5); Hematocrit 32.8 % (37.0-47.0); Mean Corp Hgb Conc. 33.5 g/dL (33.0-37.0); Mean Corpuscular Volume 95.3 fL (81.0-99.0); Mean Platelet Volume 8.5 fL (7.4-10.4); Nucleated Red Blood Cells % 0 %; Platelet Count 398 10^3/uL (130-400); Red Blood Cell Count 3.44 10^6/uL (4.20-5.40); Red Cell Dist. Width 12.9 % (11.5-14.5); White Blood Cell Count 13.7 10^3/uL (4.8-10.8)
[2025-01-06 20:38] LABS: Lactic Acid 1.7 mmol/L (0.7-2.0)
[2025-01-06 20:53] LABS: ALT (SGPT) 21 U/L (0-35); AST (SGOT) 31 U/L (14-36); Alkaline Phosphatase 108 U/L (38-126); Blood Urea Nitrogen 19 mg/dl (7-17); Calcium 9.4 mg/dl (8.4-10.2); Carbon Dioxide 32 mmol/L (22-30); Chloride 95 mmol/L (98-107); Estimated Creatinine Clearance 79 ml/min; Glucose 135 mg/dl (70-99); Sodium 136 mmol/L (135-145); Total Bilirubin 0.7 mg/dl (0.2-1.3); Total Protein 7.1 g/dl (6.3-8.2); eGFR > 60.00
[2025-01-06 21:00] VITALS: BP 147/109
[2025-01-06 21:43] LABS: Erythrocyte Sed Rate 73 mm/hour (0-20)
[2025-01-06 22:00] VITALS: BP 134/61
[2025-01-06 22:13] LABS: Urine Albumin 2+ (Neg - Trace); Urine Bilirubin Negative (Negative); Urine Character Clear (Clear); Urine Color Yellow; Urine Glucose Negative (Negative); Urine Ketone Negative (Negative); Urine Leukocyte Negative (Negative); Urine Nitrite Negative (Negative); Urine Occult Blood Negative (Negative); Urine Urobilinogen Negative (Neg - 1+)
[2025-01-06 22:17] LABS: C-Reactive Protein > 270.00 mg/L (0.0-10.00)
--- NOTE | 2025-01-06 22:59 | ED.GENMED ---
History of Present Illness
General
Chief Complaint: Fever
Source: patient and family (2 daughters present at the bedside)
Exam Limitations: none
Time Seen by Provider: 01/06/25 22:22
Nursing documentation reviewed up to this point in time: agreed with
History of Present Illness
History of Present Illness:
79-year-old female presents to the emergency department with fever and generalized weakness. Patient was discharged from the hospital today after a right knee washout after an infected knee replacement. Patient had the washout on Sunday and was
hospitalized all weekend. Patient had a PICC line placed and was started on Rocephin twice daily. Patient was discharged tonight around 5 PM. She got home and had generalized weakness and a reported fever of '102.3 '. Family is concerned about
the torturous steps in their house as well as 2 dogs that could knock her over. Patient and family adamantly refuse going to a SNF. According to records, patient was denied placement at a rehab facility.
I spoke with Dr. Robertson, orthopedic surgery who advised me that patient would probably be best served in a SNF. Hospital bed ordered for home. PICC line in place. For tonight, patient to be brought into the hospital and case management will be
consulted.
Past History
Past History
ED Past Medical History: HTN and Hypercholesterolemia
ED Past Surgical History: Orthopedic
Social History
Tobacco: Non-smoker
Alcohol: None
Drug: None
Personal:
Living: with family
Review of Systems
Review of Systems
Allergies reviewed?: Yes
Other source history: family
All Other Systems: ROS reviewed and negative except as documented in HPI and ROS
Constitutional: Reports fever, fatigue, sleep disturbance and chills
Musculoskeletal: Reports joint pain, joint swelling and muscle pain
Psychiatric: Reports anxiety
Phy Exam
General Physical Exam
General Presentation: well appearing and moderate distress
General age: appears stated age
General Skin: warm and dry
General Habitus: elderly
General Mental: alert
General Hydration: appears well hydrated
ENT Exam
ENT Exam: EOMI, pharynx normal, neck supple and normocephalic
Eye Exam
Eye Exam: PERRL, cornea clear and conjunctiva normal
Cardiovascular Exam
Cardiovascular Exam: regular rate/rhythm, no edema, no murmur and normal peripheral pulses
Pulmonary Exam
Pulmonary Exam: lungs clear, no respiratory distress, no rales, no crackles, no rhonchi, no stridor, no wheezing and no cough
Gastrointestinal Exam
Gastrointestinal Exam: normal bowel sounds, non tender, soft, no organomegaly, no pulsatile mass and non distended
Neurological Exam
Neurological Exam: alert, oriented x3, no motor deficits and speech normal
Musculoskeletal Exam
Musculoskeletal Exam: full ROM and no edema
Skin Exam
Skin Exam: erythema, tenderness and warmth
Psychiatric Exam
Psychiatric Exam: normal mood/affect
Sepsis
Sepsis Screening
Sepsis Assessment: Sepsis Ruled Out
Sepsis Screen
Sepsis Screen: Sepsis Ruled Out
Date: 01/07/25
Time: 02:51
Course
Orders/Labs/Results
Orders:
Orders
01/06/25 20:03
Electrocardiogram (*1) Urgent
Reason for Study: Other
Other Reason for Exam: Possible Sepsis
Cardiac Monitoring- Treatment ONCE
EKG- Treatment ONCE
IV Insert/Care/Rem.- Treatment PRN
O2 Therapy [RESP] Urgent
Titrate/Wean O2 to maintain O2 sat greater than (%): 93
Special Instructions: TO MAINTAIN CONTINUOUS O2 SATS > OR = 93%
Pulse Ox/cont/shift [RESP] Urgent
Quantity: 1
Special Instructions: CONTINUOUS
01/06/25 20:17
C-Reactive Protein Urgent
Comment: ADD ON
Complete Blood Count/With Diff Urgent
Comprehensive Metabolic Panel Urgent
Erythrocyte Sed Rate Urgent
Comment: ADD ON
Lactic Acid Q4H
Comment: ON ICE, CANCEL 2ND ORDER IF FIRST LACTIC ACID LEVEL <2
Blood Culture Q20M
DANIEL Source: Blood/Venous
Specimen Description:
Comment: Urgent from separate sites. If patient screens positive for possible sepsis
01/06/25 20:18
Blood Culture Q20M
DANIEL Source: Blood/Venous
Specimen Description:
Comment: Urgent from separate sites. If patient screens positive for possible sepsis
01/06/25 21:10
Add On- LAB Urgent
Tests Added?: esr, crp
01/06/25 21:19
Chest [CR Chest - 2 Views ] Urgent
Comment:
Reason For Exam: PICC ON ARRIVAL
01/06/25 22:06
Urine Culture Reflexed from UA [Urinalysis Reflex To Culture] Urgent
Date Specimen was Collected: 01/06/25
Time Specimen was Collected: 21:56
Urine Microscopic Reflex Cult Urgent
01/06/25 23:00
Flush (0.9% Sodium Chloride) [Flush (Nss)] See Dose Instructions IV PER PROTOCOL
01/06/25 23:20
Acetaminophen 1000MG/100Ml [Ofirmev] 1,000 mg in 100 ml IV ONCE
Acetaminophen IV Indication:: Targeted Temp Management
01/06/25 23:29
Case Management Consult ONCE
Case Management Consult: Discharge Planning
01/07/25 01:50
Admit/Transfer Patient As Directed
Co-Sign Provider:
Level of Care: Observation services
Assign to:: Medical/Surgical
Physician / Group: Mikael
Diagnosis: R Knee Prosthetic Joint Infection
PRN Pain Medication Management As Directed
May give lesser potent ordered pain med per pt: Yes
preference::
Protocol:: Medication orders for pain may be administered in a
manner that supports deferring to patient preference
when the pt is:
- Requesting an ordered lesser potent pain medication.
Least to most potent pain medications are defined
as: acetaminophen < NSAID < tramadol < opioids
(morphine, oxycodone, hydromorphone).
- Requesting a lesser dose of the same medication IF
ORDERED.
- Requesting a less intrusive route of administration
if both routes are prescribed by the provider (PO <
IV).
01/07/25 01:55
Code Status As Directed
Resuscitation Status: Full Code
01/07/25 02:00
Tramadol HCl [Ultram] 50 mg PO Q6H PRN
Abnormal Lab Results
01/06/25 01/06/25
20:17 22:06
WBC 13.7 H 10^3/uL
(4.8-10.8)
RBC 3.44 L 10^6/uL
(4.20-5.40)
Hgb 11.0 L g/dL
(12.0-16.0)
Hct 32.8 L %
(37.0-47.0)
MCH 32.0 H pg
(27.0-31.0)
Abs Immat Gran (auto) 0.1 H 10^3/uL
(0-0.05)
Absolute Neuts (auto) 10.1 H 10^3/uL
(1.4-6.5)
Absolute Monos (auto) 1.5 H 10^3/uL
(0.1-0.6)
Immature Gran % 1.0 H %
(0-0.5)
Lymphocytes % 11.3 L %
(20.5-51.1)
Monocytes % 11.3 H %
(1.7-9.3)
ESR 73 H mm/hour
(0-20)
Chloride 95 L mmol/L
(98-107)
Carbon Dioxide 32 H mmol/L
(22-30)
BUN 19 H mg/dl
(7-17)
Creatinine 0.5 L mg/dL
(0.6-1.0)
Glucose 135 H mg/dl
(70-99)
C-Reactive Protein > 270.00 H mg/L
(0.0-10.00)
Urine Albumin (Reflex) 2+ A
(Neg - Trace)
01/06/25 20:17
01/06/25 20:17
Vital Signs
Initial and Last Documented VS:
Initial Vital Signs
Temp Pulse Resp BP Pulse Ox
98.1 F 103 18 157/67 97
01/06/25 19:52 01/06/25 19:52 01/06/25 19:52 01/06/25 19:52 01/06/25 19:52
Last Documented Vital Signs
Temp Pulse Resp BP Pulse Ox
98.2 F 98 22 139/68 97
01/07/25 01:23 01/07/25 01:15 01/07/25 01:00 01/07/25 01:00 01/07/25 01:15
*Critical Care Note
Total Time (30-74mins, 75-104mins- exclusive of procedures): Not Applicable
Patient Management
Social determinants of health affecting care: Living situation and Strong social support
Update Note
Update Note:
11:37 PM�back into speak with the patient. I explained to her that juarez's admission is likely only temporary and that she will need to choose between a half-way facility or home. I told her that case management was consulted and that
Marcelo would stop by and see her in the morning. Daughter is aware of the plan.
ED Attending Note
-
Portions of this chart may have been created with voice recognition software.� Occasional wrong word or��sound alike� substitutions may have occurred due to the inherent limitations of voice recognition software.
Discharge Plan
Departure
Patient Disposition: Admit
Date of Disposition: 01/06/25
Time of Disposition: 23:29
Presentation/result/management discussed w/ accepting MD/DO: Hospitalist
Condition: Fair
Discharge Problem:
Infection of total right knee replacement, Leukocytosis
Prescriptions:
No Action
pravastatin [Pravachol] 40 MG tablet
40 mg PO DAILY
Hydrochlorothiazide
20 mg PO DAILY
multivitamin Tablet
1 tab PO DAILY
aspirin 325 mg Tablet
325 mg PO DAILY
citalopram 10 mg Tablet
5 mg PO DAILY Qty: 30 0RF
ceftriaxone 2 gram Recon Soln
2,000 mg IV Q24H Qty: 45 0RF
tramadol 50 mg tablet
50 mg PO Q6H PRN (Reason: Pain) Qty: 30 0RF
celecoxib [Celebrex] 200 mg capsule
200 mg PO DAILY Qty: 30 0RF
Referrals:
Som Mayo Jr., DO [Family Provider] -
Interventions
Interventions:
*Risk Screen - Suicide Last Done: 01/06/25 19:52
*General Assessment Last Done: 01/06/25 19:52
*Neglect/Abuse Screening Last Done: 01/06/25 19:52
*ED- Fall Risk Assessment Last Done: 01/06/25 19:52
*ED COVID-19 Vaccine History Last Done: 01/06/25 20:00
ED- Neurological Assessment Last Done: 01/06/25 20:35
ED-Skin Assessment Last Done: 01/06/25 20:35
Discharge Date and Time
Print Language: NEPALI
[2025-01-06 23:00] VITALS: BP 145/72
[2025-01-06 23:06] LABS: Urine Red Blood Cell 0-2 /HPF (0-2); Urine Squamous Cell >30 /LPF (Few); Urine White Cell 0-2 /HPF (0-5)
[2025-01-06] MEDS: OFIRMEV 100 IV (23:37)
[2025-01-07] VITALS (8 sets, daily range): BP systolic 111–141; BP diastolic 53–77; PULSE 88; BMI 26.5
--- NOTE | 2025-01-07 02:00 | HPS.HSE ---
Family Physician
-
Family Physician: Som Mayo Jr.
Chief Complaint
-
R Knee Pain / Ambulatory Dysfunction
History of Present Illness
Patient is a 79y F with PMH significant for hypertension who presents to ED complaining of R knee pain and ambulatory dysfunction. Patient was recently admitted at for R knee prosthetic joint infection. She did not qualify for acute rehab at
discharge and declined SNF placement. She was discharged to home this afternoon. Unfortunately, patient had uncontrolled pain and increased difficulty with mobility at home and returned to the ED with family. She has PICC in place in the RUE for
IV abx administration.
Patient / family are interested in [facility] evaluation (Dr. Joan Back).
They are now agreeable to SNF placement if acute rehab cannot be arranged.
Medical History
Past Medical History
Past Medical History: Reports Other
Additional Past Medical History:
Hypertension
Depression
Breast Cancer s/p Lumpectomy
Past Surgical History: Reports Other
Additional Past Surgical History:
Right TKA (12/08/2024)
Right Knee I&D / Spacer (01/02/2025)
Left Lumpectomy
Right Wrist ORIF
Social History
Tobacco: Non-smoker
Alcohol: None
Drug: None
Living: With Family
Family History
Family History: Not pertinent
Allergies / Home Medications
Allergies reflects when Allergies were last updated in [employer].
Home Medications with original date entered in [employer]
Allergy/Medication List:
Allergies
Allergy/AdvReac Type Severity Reaction Status Date / Time
latex [Latex] Allergy Rash Verified 01/06/25 20:00
hayfever Allergy nasal Uncoded 01/06/25 20:00
symptoms
Home Medications
Hydrochlorothiazide 20 mg PO DAILY Blood Pressure 03/13/08
pravastatin 40 mg tablet (Pravachol) 40 mg PO DAILY High Cholesterol 03/13/08
aspirin 325 mg tablet 325 mg PO DAILY Blood Clot Prevention/Tx 01/02/25
multivitamin 1 tab PO DAILY Supplement 01/02/25
ceftriaxone 2 gram solution for injection 2,000 mg IV Q24H Infection #45 ea 01/05/25
citalopram 10 mg tablet 5 mg (1/2 x 10 mg) PO DAILY Depression #30 tabs 01/05/25
celecoxib 200 mg capsule (Celebrex) 200 mg PO DAILY Pain #30 caps 01/06/25
tramadol 50 mg tablet 50 mg PO Q6H PRN Pain #30 tabs 01/06/25
Review of Systems
-
History Source: Patient
A 12 point ROS was completed and negative except as noted: Yes
Constitutional: Denies Fever or Chills
Respiratory: Denies Cough or Trouble Breathing
Cardiac: Denies Chest Pain or Palpitations
Abdomen/GI: Denies Abdominal Pain, Nausea, Vomiting or Diarrhea
Musculoskeletal: Reports Joint Pain
Neurological: Denies Dizzy or Headache
Physical Exam
Vital Signs
Vital Signs
Temp Pulse Resp BP Pulse Ox
98.2 F 98 22 139/68 97
01/07/25 01:23 01/07/25 01:15 01/07/25 01:00 01/07/25 01:00 01/07/25 01:15
Physical Exam
General: Other (79y F in mild distress due to pain.)
HEENT: Moist mucous membranes and PERRLA
Respiratory: Clear; No Wheezes, Rales or Rhonchi
Cardiac: S1/S2 and Regular Rhythm; No Murmur
GI: Soft, Non Tender, Non Distended and Normal Bowel Sounds
Musculoskeletal: No Clubbing, No Cyanosis and Other (Trace edema RLE. R knee occlusive dressing in place without bleeding / strikethrough.)
Neuro: AO x 3
Hematologic/Lymphatic: Other (RUE PICC in place.)
Laboratory Results
-
01/06/25 20:17
01/06/25 20:17
Laboratory Results
Lactic Acid Cancelled 01/07/25 00:15
Total Bilirubin 0.7 mg/dl (0.2-1.3) 01/06/25 20:17
AST 31 U/L (14-36) 01/06/25 20:17
ALT 21 U/L (0-35) 01/06/25 20:17
Alkaline Phosphatase 108 U/L (38-126) 01/06/25 20:17
Impression/Plan
-
A/P: Patient is a 79y F with PMH significant for R knee prosthetic joint infection who presents to ED complaining of weakness and knee pain following discharge earlier today.
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
- Observe overnight for further evaluation and treatment.
- Continue ceftriaxone 2g daily (2 PM).
- Appreciate Ortho evaluation / input.
- Continue pain control, supportive care, etc.
- PT eval.
- Case Management evaluation for discharge planning - acute rehab v SNF.
Benign Hypertension
- Stable. Continue home HCTZ with holding parameters.
DVT prophylaxis: Continue full-dose ASA.
Code Status: Full
[2025-01-07] MEDS: ULTRAM 50 MG PO ×4 (02:05→20:01)
--- NOTE | 2025-01-07 03:40 | PTCARENOTE ---
Received patient from ED via stretcher. Patient stood and pivoted from stretcher to bed x3 assist. Oriented patient to room and placed call san within reach.
[2025-01-07] MEDS: TYLENOL 650 MG PO (03:45)
[2025-01-07 07:37] LABS: Hematocrit 30.5 % (37.0-47.0); Hemoglobin 10.2 g/dL (12.0-16.0); Mean Corp Hgb Conc. 33.4 g/dL (33.0-37.0); Mean Corpuscular Hgb 31.6 pg (27.0-31.0); Mean Corpuscular Volume 94.4 fL (81.0-99.0); Mean Platelet Volume 8.9 fL (7.4-10.4); Platelet Count 348 10^3/uL (130-400); Red Blood Cell Count 3.23 10^6/uL (4.20-5.40); Red Cell Dist. Width 12.9 % (11.5-14.5); White Blood Cell Count 10.8 10^3/uL (4.8-10.8)
--- NOTE | 2025-01-07 07:57 | W.PN.UPDATE ---
Update Note
Progress Note Update
Ms. Rivera was seen and evaluated with Dr. Robertson on rounds this morning. She was discharged yesterday following her right TKA I&D with poly exchange under the direction of Dr. Robertson on 01/02/2025. Unfortunately, she returned to ED later
yesterday due to concerns about safe post-operative management at home. She also reported having a temperature of 102F at home. She is resting comfortably in bed this morning. She reports her pain is controlled at present, though she does endorse
expected morning stiffness in the knee.
Directed exam of the right knee reveals mild to moderate effusion, expected at this point post-operatively. Small amount of warmth about the knee. No significant tenderness about the knee this morning. Patient able to range 0-30 without significant
pain, consistent with morning stiffness. She does report she was able to sit on the edge of the bed yesterday with her leg down. Calf soft and nontender. NVID. VSS, afebrile this AM.
WBC 10.8 this AM from 13.7 yesterday. Hgb 10.2 yesterday.
79 yo F POD5 right total knee arthroplasty I&D with polyethylene liner exchange under the direction of Dr. Robertson; returned after dc due to social concerns
--Patient may be WBAT to BLE with walker. We appreciate the assistance of PT/OT while patient admitted.
--Case management consult for dc planning. Ideally, patient would like to be transferred to [facility] if accepted. Otherwise, patient amenable to SNF placement.
--Continue abx per ID, currently IV rocephin. I have reached out to Dr. Alonzo with request to see patient while admitted. Consult placed.
--Patient did report fever to 102 at home yesterday after discharge. She remains afebrile at present. At this point, we would like to continue with continued treatment with IV antibiotics. Patient understands that should this fail to resolve her
infection, a two-stage revision may be warranted.
--Please ensure patient dc with orders for ESR, CRP and WBC weekly.
--Maintain surgical dressing until 7-10 days post-op. Staple removal at 2 weeks post-op.
--Patient should be seen in our office next week.
--- NOTE | 2025-01-07 08:12 | CM ---
Addendum entered by Yaneth Barclay RN 01/07/25 13:58:
Cm callled Melissa at [facility] to discuss admission. Awaiting call back.
CM spoke with patient's daughter who offered SNF choices of [facility], [facility] and [facility]. Daughter is still hopeful that patient can be accepted to [facility].
Cm will send referrals to [facility] and [facility].
Addendum entered by Yaneth Barclay RN 01/07/25 10:02:
CM sent referral via paper fax to Evangelina at [facility].
Addendum entered by Yaneth Barclay RN 01/07/25 09:08:
Cm spoke with Colleen who [facility]. CM contacted Morris at [facility] to review patient.
Addendum entered by Yaneth Barclay RN 01/07/25 08:55:
CM spoke with patient's daughter Colleen [phone]. Colleen stated that she spoke with her neighbor who is a physician at [facility] who stated that patient would be a good candidate for acute rehab. CM left message for Ariella at [facility] to discuss case.
CM encouraged patient's daughter to research SNF options should Acute Rehab be denied.
Original Note:
CM spoke with daughter Chica via phone. Chica stated that patient and family would like to continue pursuing Acute Rehab at [facility] and [facility]. If denied, patient would consider SNF options. BERT was updated by
Dr. Robertson. CM updated hospitalist. CM requested PM and R consult.
[facility]
Patient's daughter Colleen [phone] has a contact at [facility] who can assist with admission if appropriate.
[2025-01-07 08:21] LABS: Blood Urea Nitrogen 15 mg/dl (7-17); Calcium 9.1 mg/dl (8.4-10.2); Carbon Dioxide 31 mmol/L (22-30); Chloride 102 mmol/L (98-107); Estimated Creatinine Clearance 70 ml/min; Glucose 97 mg/dl (70-99); Potassium 3.8 mmol/L (3.5-5.1); Sodium 140 mmol/L (135-145); eGFR > 60.00
[2025-01-07] MEDS: PRAVACHOL 40 MG PO (08:28)
[2025-01-07] MEDS: ORETIC 25 MG PO (08:28)
[2025-01-07] MEDS: CELEBREX 200 MG PO (08:29)
[2025-01-07] MEDS: ASPIRIN 325 MG PO (08:29)
[2025-01-07] MEDS: CELEXA 5 MG PO (08:29)
[2025-01-07] MEDS: COLACE 100 MG PO ×2 (08:29→20:01)
--- NOTE | 2025-01-07 10:50 | CM ---
Addendum entered by Yaneth Barclay RN 01/07/25 13:37:
[facility] has declined admission.
Addendum entered by Yaneth Barclay RN 01/07/25 10:55:
[facility] has declined.
Original Note:
CM sent referrals to [facility], [facility], [facility] and [facility].
CM further sent referrals to SNF to [facility] and [facility].
--- NOTE | 2025-01-07 14:04 | W.PN.UPDATE ---
Update Note
Progress Note Update
Non-billable note
1. Right knee prosthetic joint infection, history of TKA 12/08/24 -reported fever yesterday. Orthopedic surgery evaluated and requested ID to follow along. Patient currently being getting 6 weeks of Rocephin 2gm therapy. Family was interested in
acute rehab although clinically may not qualify, PMR consult placed per case management request nonetheless.
Ortho recommended to check weekly ESR/CRP/WBC at discharge
Discharge planning
[2025-01-07] MEDS: ROCEPHIN 2000 MG IV (14:18)
[2025-01-07] MEDS: STERILE WATER FOR INJECTION 20 ML IV (14:18)
--- NOTE | 2025-01-07 17:04 | CON.ID ---
Consultation
-
Date/Time Consultation Requested: 01/07/25 0808
Date/Time Consultation Performed: 01/07/2025 1600
Requesting Provider: Cynthia Moctezuma
Performing Provider: Dr. Alonzo
Reason for Consultation: Fever; right knee PJI
Chief Complaint / Past History
History of Present Illness
Felicia Rivera is a 79-year-old female being evaluated at the request of Cynthia Moctezuma regarding right knee prosthetic joint infection. History is obtained from chart review, along with patient interview. Additional history was obtained from review
of old records contained in the hospital EMR system.
The patient is known to the Infectious Diseases service, having just been discharged yesterday. In review, she underwent a right knee replacement on 12/08/2024. She notes that the postop period she did well, but approximate 2 weeks ago she 'fell'
versus 'slid' down approximately 7 steps at home and landed on her back. She notes mild right knee pain since that time, but also admitted to some shoulder neck pain also. Since the fall, she has noted some increasing stiffness of the right knee,
but on 12/31 she noted marked increase in pain and difficulty with ambulation. She also notes that the knee has been progressively red and swollen since the fall. She denies any fevers or chills. She presented to the emergency room on 01/01 for
further evaluation. Imaging was performed which was nonrevealing, but she did have a low-grade leukocytosis. She was seen by Orthopedics on 01/02 and underwent joint aspiration which was found to have significant white cells. She was brought into
the hospital and underwent washout with poly exchange. Cultures ultimately grew out Serratia marcescens, and the patient was placed on a 6-week course of ceftriaxone.
Following discharge yesterday she went home, where she reports that she felt terrible, and was in significant pain. Additionally, she reports a temperature of 102 degrees at home. Upon return to the hospital she was found to be 100.2 degrees. She
has been placed back on ceftriaxone. At this time, she reports that her pain is somewhat better controlled. She denies any fevers or chills since returning to the hospital.
Past History
Additional Past Medical History:
Osteopenia
HTN
HLD
Hx left breast ductal adenocarcinoma
Additional Past Surgical History:
Left knee replacement
Right knee replacement (12/04/2024)
Left lumpectomy
Allergy History:
latex [Latex] Allergy (Verified 01/06/25 20:00)
Rash
hayfever Allergy (Uncoded 01/06/25 20:00)
nasal symptoms
Medications Reviewed: Yes
Current Antibiotics:
ceftriaxone
Social History
Tobacco: Non-Smoker
Alcohol: None
Drug: None
Living: With Family
Employment: Retired
Family History
Family History: Not Pertinent
Review of Systems
Vital Signs
Temp Pulse Resp BP Pulse Ox
98.4 F 94 18 141/77 98
01/07/25 15:54 01/07/25 15:54 01/07/25 15:54 01/07/25 15:54 01/07/25 15:54
Physical Exam
Physical Exam
Constitutional: No Acute Distress, Comfortable and Non-toxic
Eyes: No Conjunctival Hemorrhage and Sclera Anicteric
Oral: No Thrush and No Ulcers
Cardiovascular: Regular Rate and S1/S2; Negative S3/S4 or Murmur
Pulmonary: Clear; Negative Wheezes, Rales or Rhonchi
Gastrointestinal: Soft, Non Tender, Non Distended and Normal Bowel Sounds
Genito-Urinary: Negative Jackman
Extremities: Edema (RLE), Erythema (Right knee area) and Pulses; Negative Venous Insufficiency
Musculoskeletal: Joint Swelling (Right knee. Dressing in place without strikethrough)
Skin: Warm and Dry; Negative Rash or Jaundice
Neurological: Awake and Alert
Psychological: Calm
.
Lab / Diagnostic Study Results
01/07/25 06:52
04/23/25 06:52
Abs Immat Gran (auto) 0.1 10^3/uL (0-0.05) H 01/06/25 20:17
Absolute Neuts (auto) 10.1 10^3/uL (1.4-6.5) H 01/06/25 20:17
Absolute Lymphs (auto) 1.5 10^3/uL (1.2-3.4) 01/06/25 20:17
Absolute Monos (auto) 1.5 10^3/uL (0.1-0.6) H 01/06/25 20:17
Absolute Basos (auto) 0.1 10^3/uL (0-0.2) 01/06/25 20:17
Immature Gran % 1.0 % (0-0.5) H 01/06/25 20:17
Neutrophils % 73.7 % (42.2-75.2) 01/06/25 20:17
Lymphocytes % 11.3 % (20.5-51.1) L 01/06/25 20:17
Monocytes % 11.3 % (1.7-9.3) H 01/06/25 20:17
Eosinophils % 2.0 % (0-6) 01/06/25 20:17
Basophils % 0.7 % (0-2) 01/06/25 20:17
ESR 73 mm/hour (0-20) H 01/06/25 20:17
Lactic Acid Cancelled 01/07/25 00:15
C-Reactive Protein > 270.00 mg/L (0.0-10.00) H 01/06/25 20:17
Ur Squamous Epith Cells >30 /LPF (Few) 01/06/25 22:06
Microbiology Results
Micro:
01/06/25 20:17 Blood Culture - Pending
Blood/Venous
01/06/25 20:18 Blood Culture - Pending
Blood/Venous
Imaging:
01/02/25 x-ray right knee: Total right knee arthroplasty in anatomic position. No fracture, dislocation or focal bony destructive process.
Assessment / Plan
Right knee PJI 2* Serratia marcescens
Leukocytosis; improved
Elevated CRP
Recent right knee replacement (12/08/2024)
Osteopenia
HTN
HLD
Hx left breast ductal adenocarcinoma
Recommendations:
Continue ceftriaxone 2 g IV every 24 hours for 6 week course.
Weekly BMP / CBC w/ diff / LFT's / ESR / CRP
Monitor white count and temperature curve.
For possible SNF placement.
[2025-01-07] MEDS: SENOKOT 17.2 MG PO (23:12)
[2025-01-08] MEDS: TYLENOL 650 MG PO (01:23)
[2025-01-08] MEDS: ULTRAM 50 MG PO ×4 (01:24→21:21)
[2025-01-08 06:00] VITALS: BMI 26.7
[2025-01-08 07:27] VITALS: BP 115/66
--- NOTE | 2025-01-08 07:40 | CM ---
Addendum entered by Yaneth Barclay RN 01/08/25 09:04:
CM updated daughter Selene with discharge planning efforts.
Addendum entered by Yaneth Barclay RN 01/08/25 08:41:
BERT spoke with Evie from [facility] and she is reviewing clinical.
Original Note:
BERT contacted [facility] admission coordinator for updated on admission acceptance.
--- NOTE | 2025-01-08 07:59 | W.PN.UPDATE ---
Update Note
Progress Note Update
Right total knee arthroplasty I&D with polyethylene liner exchange under the direction of Dr. Robertson; returned after dc due to social concerns
Tmax 100.5 �FWBC trending down. Right knee dressing is clean, dry and intact. Edema noted in the lower extremity without warmth or significant erythema. Passive motion 0 to 30 degrees without pain. No palpable pain about the knee. Calf is soft
and nontender. Distal neurovascular was intact.
--Patient may be WBAT to BLE with walker. We appreciate the assistance of PT/OT while patient admitted.
--Case management consult for dc planning. Ideally, patient would like to be transferred to [facility] if accepted. Otherwise, patient amenable to SNF placement.
--Continue abx per ID, currently IV rocephin. Dr. Alonzo has seen patient and added ceftriaxone.
--At this point, we would like to continue with continued treatment with IV antibiotics. Patient understands that should this fail to resolve her infection, a two-stage revision may be warranted.
--Please ensure patient dc with orders for ESR, CRP and WBC weekly.
--Maintain surgical dressing until 7-10 days post-op. Staple removal at 2 weeks post-op.
--Patient should be seen in our office next week.
[2025-01-08] MEDS: ORETIC 25 MG PO (08:02)
[2025-01-08] MEDS: CELEBREX 200 MG PO (08:02)
[2025-01-08] MEDS: ASPIRIN 325 MG PO (08:02)
[2025-01-08] MEDS: CELEXA 5 MG PO (08:03)
[2025-01-08] MEDS: COLACE 100 MG PO ×2 (08:03→20:32)
[2025-01-08] MEDS: PRAVACHOL 40 MG PO (08:03)
--- NOTE | 2025-01-08 11:19 | W.PN.HOSP.TC ---
Today's Communication/Plan
-
Discharge today
Assessment / Plan
Assessment / Plan
Impression :
A/P: Patient is a 79y F with PMH significant for R knee prosthetic joint infection who presents to ED complaining of weakness and knee pain following discharge earlier today.
Assessment/plan:
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
- Observe overnight for further evaluation and treatment.
- Continue ceftriaxone 2g daily (2 PM).
- Appreciate Ortho evaluation / input.
- Continue pain control, supportive care, etc.
- PT eval.
- Case Management evaluation for discharge planning - acute rehab v SNF.
- Will be discharged to [facility]hab [facility]
Benign Hypertension
- Stable. Continue home HCTZ with holding parameters.
CODE STATUS: Full code
DVT prophylaxis: ASA
Diet: Regular diet
Total time spent on today's encounter was 65 minutes which included time spent in counseling the patient/family regarding diagnosis and treatment plan as listed above, goals of care, and symptom management. Case was discussed with nursing staff,
specialists, and care coordinators/case management. All labs and imaging personally reviewed by me. Remainder the time spent in detailed review of previous records, lab data, imaging, and other medical provider documentation.
Anticipated Discharge: Today
Subjective/Interval History
-
Date of Service: January 08, 2025
Patient seen and examined at bedside, denies any chest pain or shortness of breath, no abdominal pain, no nausea, no vomiting, no diarrhea or constipation.
Objective Data
-
Vital Signs:
Vital Signs
Temp Pulse Resp BP Pulse Ox
98.9 F 84 20 115/66 98
01/08/25 07:27 01/08/25 08:02 01/08/25 07:27 01/08/25 08:02 01/08/25 08:12
I&O
01/07/25 01/08/25 01/09/25
06:59 06:59 06:59
Intake Total 240 / 240
Output Total 150 / 150
Balance 90 / 90
Physical Exam
-
General: Well Developed, Well Nourished, No Apparent Distress and Comfortable
HEENT: Normocephalic, Atraumatic, Moist Mucous Membranes, No Ptosis, PERRLA and Nose Appears Normal
Respiratory: Clear to Auscultation and Non Labored Respirations
Cardiac: Regular Rhythm and S1/S2
Breast: Deferred by me
GI: Soft, Nontender, Nondistended and Normal Bowel Sounds
Genito-urinary: No Costovertebral Tender
Musculoskeletal: Other (Right knee dressing)
Skin: Warm
Neuro: Awake, Alert, Oriented, AO x 3 and No Motor Deficits
Psych: Calm
Data Reviewed
-
Diagnostic Radiology: Image personally visualized and interpreted and Report Reviewed by me
CT Scan: Image personally visualized and interpreted and Report Reviewed by me
Ultrasound: Image personally visualized and interpreted and Report Reviewed by me
MRI: Image personally visualized and interpreted and Report Reviewed by me
Medical Tests (Nuc Med, Echo etc): Image personally visualized and interpreted and Report Reviewed by me
Labs: Labs Reviewed by me
Old Records: Reviewed
--- NOTE | 2025-01-08 11:38 | CM ---
Addendum entered by Yaneth Barclay RN 01/08/25 14:49:
CM updated patient and she is agreeable to plan for transfer.
Addendum entered by Yaneth Barclay RN 01/08/25 14:37:
C Authorization NRD 01/13
[id number]
Original Note:
Patient has been accepted to [facility] for tomorrow 01/09 discharge. CM is pending authorization.
[facility]
Report
[phone]
[2025-01-08] MEDS: FLUSH (NSS) 1 FLUSH IV (13:55)
[2025-01-08] MEDS: STERILE WATER FOR INJECTION 20 ML IV (13:55)
[2025-01-08] MEDS: ROCEPHIN 2000 MG IV (13:55)
--- NOTE | 2025-01-08 14:31 | W.PN.ID1 ---
Date of Service
Date of Service: January 08, 2025
Today's Communication
Continue antibiotics.
Assessment / Plan
Right knee PJI 2* Serratia marcescens
Leukocytosis; improved
Elevated CRP
Recent right knee replacement (12/08/2024)
Osteopenia
HTN
HLD
Hx left breast ductal adenocarcinoma
Recommendations:
Continue ceftriaxone 2 g IV every 24 hours for 6 week course.
Weekly BMP / CBC w/ diff / LFT's / ESR / CRP
Monitor white count and temperature curve.
For possible SNF placement at [facility].
Chief Complaint
-: Other (Right knee PJI)
Subjective / Review of Systems
Patient seen and examined. Reports pain somewhat improved and more controlled today.
Review of Systems: No Fever and No Chills
Vital Signs / Physical Exam
Vital Signs
Vital Signs
Temp Pulse Resp BP Pulse Ox
98.9 F 84 20 115/66 98
01/08/25 07:27 01/08/25 08:02 01/08/25 07:27 01/08/25 08:02 01/08/25 08:12
Physical Exam
Constitutional: No Acute Distress, Comfortable and Non-toxic
Eyes: Sclera Anicteric
Pulmonary: Non Labored
Gastrointestinal: Non Distended
Extremities: Edema; Negative Cyanosis or Erythema
Wound: Other (Dressing in place right knee)
Neurological: Awake and Alert
Psychological: Calm
Lines: PICC
Objective Data
Lab Data
Lab Results
01/07/25 06:52
01/07/25 06:52
ESR 73 mm/hour (0-20) H 01/06/25 20:17
Estimated Creat Clear 70 ml/min 01/07/25 06:52
Lactic Acid Cancelled 01/07/25 00:15
Total Bilirubin 0.7 mg/dl (0.2-1.3) 01/06/25 20:17
AST 31 U/L (14-36) 01/06/25 20:17
ALT 21 U/L (0-35) 01/06/25 20:17
Alkaline Phosphatase 108 U/L (38-126) 01/06/25 20:17
C-Reactive Protein > 270.00 mg/L (0.0-10.00) H 01/06/25 20:17
Most recent labs reviewed.
Micro Results:
01/06/25 20:17 Blood Culture - Preliminary
Blood/Venous No Growth in 24 hours- Final report to follow
01/06/25 20:18 Blood Culture - Preliminary
Blood/Venous No Growth in 24 hours- Final report to follow
Imaging:
01/02/25 x-ray right knee: Total right knee arthroplasty in anatomic position. No fracture, dislocation or focal bony destructive process.
[2025-01-08 15:02] VITALS: BP 131/70
--- NOTE | 2025-01-08 16:03 | PTCARENOTE ---
Pt AAO x3, REECE; OOB to chair; ambulates to BR/in mary with assist x1/walker, jose well. VSS. On room air- pulse ox 99%, no SOB noted. Abd soft, jose PO well. Voiding in BR without difficulty. Rt knee Aquacell dsg D/I. RUE dbl PICC P/I, no sx of
infiltration. resting in bed at present. Will continue to monitor.
[2025-01-08] MEDS: SENOKOT 17.2 MG PO (21:21)
[2025-01-08 23:28] VITALS: BP 124/70
[2025-01-09 05:05] LABS: Hepatitis C Antibody Negative (Negative)
--- NOTE | 2025-01-09 05:39 | W.PN.ORTHO ---
Today's Communication / Plan
-
Right total knee arthroplasty I&D with polyethylene liner exchange 01/02/25 under the direction of Dr. Robertson; returned after dc due to social concerns
Right knee dressing is clean, dry and intact. Edema noted in the lower extremity without warmth or significant erythema.
--Patient may be WBAT to BLE with walker. We appreciate the assistance of PT/OT while patient admitted.
--Case management consult for dc planning. Ideally, patient would like to be transferred to [facility] if accepted. Otherwise, patient amenable to SNF placement.
--Continue abx per ID, currently IV rocephin. Dr. Alonzo has seen patient and added ceftriaxone.
--At this point, we would like to continue with continued treatment with IV antibiotics. Patient understands that should this fail to resolve her infection, a two-stage revision may be warranted.
--Please ensure patient dc with orders for ESR, CRP and WBC weekly.
--Maintain surgical dressing until 7-10 days post-op. Staple removal at 2 weeks post-op.
--Patient should be seen in our office next week.
Assessment
.
Distal Motor Intact: Yes
Dressing:
Clean, dry and intact.
Plan
.
Surgery / Date: R revision TKA 01/02/25 D&I with poly xchange
Activity:
Out of bed.
PT/OT
Subjective
.
.:
Patient resting comfortably.
Vital Signs and Labs
.
Vital Signs and Labs:
Lab Results
01/07/25 06:52
01/07/25 06:52
Temp Pulse Resp BP Pulse Ox
98.3 F 89 15 124/70 98
01/08/25 23:28 01/08/25 23:28 01/08/25 23:28 01/08/25 23:28 01/08/25 23:28
Physical Exam
-
dressing intact- knee ROM 3-90 degrees- mild soft tissue swelling, no significant erythema
[2025-01-09 06:00] VITALS: BMI 26.7
--- NOTE | 2025-01-09 07:32 | CM ---
Addendum entered by Yaneth Barclay RN 01/09/25 10:15:
CM met with patient in room. CM answered questions. CM will remain available as needed.
Addendum entered by Yaneth Barclay RN 01/09/25 07:33:
[facility]
Report
[phone]

Original Note:
CM reviewed medical records. Patient is planned for a 10 am burr picker today to go to [facility]. CM updated admission coordinator and hospitalist.
PLAN: SNF to [facility].
[2025-01-09] MEDS: PRAVACHOL 40 MG PO (07:34)
[2025-01-09] MEDS: CELEXA 5 MG PO (07:34)
[2025-01-09] MEDS: ORETIC 25 MG PO (07:34)
[2025-01-09] MEDS: ASPIRIN 325 MG PO (07:34)
[2025-01-09] MEDS: CELEBREX 200 MG PO (07:34)
[2025-01-09] MEDS: COLACE 100 MG PO (07:34)
[2025-01-09 08:22] VITALS: BP 140/81
[2025-01-09] MEDS: ULTRAM 50 MG PO (08:49)
--- NOTE | 2025-01-09 11:14 | W.PN.HOSP.TC ---
Today's Communication/Plan
-
Discharge to rehab
Assessment / Plan
Assessment / Plan
Impression :
A/P: Patient is a 79y F with PMH significant for R knee prosthetic joint infection who presents to ED complaining of weakness and knee pain following discharge earlier today.
Seen by infectious disease and orthopedic.
Will be discharged to rehab on 6 weeks of IV Rocephin
Assessment/plan:
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
- Observe overnight for further evaluation and treatment.
- Continue ceftriaxone 2g daily (2 PM).
- Appreciate Ortho evaluation / input.
- Continue pain control, supportive care, etc.
- PT eval.
- Case Management evaluation for discharge planning - acute rehab v SNF.
- Will be discharged to rehab today [facility]
Benign Hypertension
- Stable. Continue home HCTZ with holding parameters.
CODE STATUS: Full code
DVT prophylaxis: ASA
Diet: Regular diet
Total time spent on today's encounter was 65 minutes which included time spent in counseling the patient/family regarding diagnosis and treatment plan as listed above, goals of care, and symptom management. Case was discussed with nursing staff,
specialists, and care coordinators/case management. All labs and imaging personally reviewed by me. Remainder the time spent in detailed review of previous records, lab data, imaging, and other medical provider documentation.
Anticipated Discharge: Today
Subjective/Interval History
-
Date of Service: January 09, 2025
Patient seen and examined at bedside, denies any chest pain or shortness of breath, no abdominal pain, no nausea, no vomiting, no diarrhea or constipation.
Discharge to rehab today.
Objective Data
-
Vital Signs:
Vital Signs
Temp Pulse Resp BP Pulse Ox
98.8 F 91 18 140/81 97
01/09/25 08:22 01/09/25 08:22 01/09/25 08:22 01/09/25 08:22 01/09/25 08:22
I&O
01/08/25 01/09/25 01/10/25
06:59 06:59 06:59
Intake Total 240 / 240 1620 / 1620 240 / 240
Output Total 150 / 150
Balance 90 / 90 1620 / 1620 240 / 240
Physical Exam
-
General: Well Developed, Well Nourished, No Apparent Distress and Comfortable
HEENT: Normocephalic, Atraumatic, Moist Mucous Membranes, No Ptosis, PERRLA and Nose Appears Normal
Respiratory: Clear to Auscultation and Non Labored Respirations
Cardiac: Regular Rhythm and S1/S2
Breast: Deferred by me
GI: Soft, Nontender, Nondistended and Normal Bowel Sounds
Genito-urinary: No Costovertebral Tender
Musculoskeletal: Other (Right knee dressing)
Skin: Warm
Neuro: Awake, Alert, Oriented, AO x 3 and No Motor Deficits
Psych: Calm
Data Reviewed
-
Diagnostic Radiology: Image personally visualized and interpreted and Report Reviewed by me
CT Scan: Image personally visualized and interpreted and Report Reviewed by me
Ultrasound: Image personally visualized and interpreted and Report Reviewed by me
MRI: Image personally visualized and interpreted and Report Reviewed by me
Medical Tests (Nuc Med, Echo etc): Image personally visualized and interpreted and Report Reviewed by me
Labs: Labs Reviewed by me
Old Records: Reviewed
--- NOTE | 2025-01-09 11:16 | W.DCSUMMARY ---
Discharge Summary
Discharge Data
Date of Admission: 01/08/25
Date of Discharge: 01/09/25
-
Pending Results: No
Hospital Course
Hospital course
Patient is a 79y F with PMH significant for R knee prosthetic joint infection who presents to ED complaining of weakness and knee pain following discharge earlier today.
Seen by infectious disease and orthopedic.
Will be discharged to rehab on 6 weeks of IV Rocephin
During hospitalization patient was treated from the [facility]
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
- Observe overnight for further evaluation and treatment.
- Continue ceftriaxone 2g daily (2 PM).
- Appreciate Ortho evaluation / input.
- Continue pain control, supportive care, etc.
- PT eval.
- Case Management evaluation for discharge planning - acute rehab v SNF.
- Will be discharged to rehab today [facility]
Benign Hypertension
- Stable. Continue home HCTZ with holding parameters.
CODE STATUS: Full code
DVT prophylaxis: ASA
Diet: Regular diet
Total time spent on today's encounter was 40 minutes which included time spent in counseling the patient/family regarding diagnosis and treatment plan as listed above, goals of care, and symptom management. Case was discussed with nursing staff,
specialists, and care coordinators/case management. All labs and imaging personally reviewed by me. Remainder the time spent in detailed review of previous records, lab data, imaging, and other medical provider documentation.
Anticipated Discharge: Today
Discharge Plan
-
Patient Disposition: Jail/SNF
Discharge Diagnosis/Procedures: Right knee prosthetic joint infection.
Hypertension
Condition: Good
Diet: Regular
Activity: As tolerated
Additional Activity: WBAT to BLE with walker.
Blood Work: Weekly BMP / CBC w/ diff / LFT's / ESR / CRP
Other Services: PT and OT
Referrals:
Hakan Robertson MD [Active] -
Som Mayo Jr., DO [Family Provider] -
Raymond Alonzo DO [Active] -
Additional Discharge Medication Instructions: Continue ceftriaxone 2 g IV every 24 hours for 6 week course.
Prescriptions:
New
acetaminophen 325 mg Tablet
650 mg PO Q4HPRN PRN (Reason: Mild Pain / Temp > 101) Qty: 0 0RF
Continued
pravastatin [Pravachol] 40 MG tablet
40 mg PO DAILY
Hydrochlorothiazide
20 mg PO DAILY
multivitamin Tablet
1 tab PO DAILY
aspirin 325 mg Tablet
325 mg PO DAILY
citalopram 10 mg Tablet
5 mg PO DAILY Qty: 30 0RF
ceftriaxone 2 gram Recon Soln
2,000 mg IV Q24H Qty: 45 0RF
celecoxib [Celebrex] 200 mg capsule
200 mg PO DAILY Qty: 30 0RF
tramadol 50 mg tablet
50 mg PO Q6H PRN (Reason: Pain) Qty: 5 0RF
Discharge Orders:
Discharge Patient (As Directed); Ordered 01/08/25
Ordered By: Keith Souza
Discharge Date and Time
Discharge Date/Time: 01/09/25 10:47
Print Language: SOMALI
== END 2025-01-09 10:47 | DRG 561 ==
LOC: 4 EAST ACU 08:11
PROVIDERS: Emergency Medicine; ADMITTING PHYSICIAN Hospitalist; ATTENDING PHYSICIAN General Practice; CONSULT PHYSICIAN Internal Medicine Infectious Disease; EMERGENCY PHYSICIAN Student in an Organized Health Care Education/Training Program; FAMILY PHYSICIAN Family Medicine
DX: T84.53XA Infection and inflammatory reaction due to internal right knee prosthesis, initial encounter (principal); Y83.1 Surgical operation with implant of artificial internal device as the cause of abnormal reaction of the patient, or of later complication, without mention of misadventure at the time of the procedure; I10 Essential (primary) hypertension; Z96.651 Presence of right artificial knee joint; M85.80 Other specified disorders of bone density and structure, unspecified site; E78.00 Pure hypercholesterolemia, unspecified; Z74.09 Other reduced mobility
CPT/HCPCS: 71046; 80048; 80053; 81003; 81015; 83605; 85025; 85027; 85652; 86140; 86803; 87040; 93005; 97116; 97163; 99285

== ENCOUNTER → 2025-01-13 08:51 | Outpatient (REF) | payer OTHER, SELFPAY ==
[2025-01-13 09:47] LABS: % Eosinophils 4.6 % (0-6); % Immature Granulocytes 0.4 % (0-0.5); % Monocytes 11.4 % (1.7-9.3); % Neutrophils 66.6 % (42.2-75.2); Absolute Basophils 0.1 10^3/uL (0-0.2); Absolute Eosinophils 0.4 10^3/uL (0-0.7); Absolute Lymphocytes 1.2 10^3/uL (1.2-3.4); Absolute Monocytes 0.9 10^3/uL (0.1-0.6); Absolute Neutrophils 5.1 10^3/uL (1.4-6.5); Hemoglobin 10.3 g/dL (12.0-16.0); Mean Corp Hgb Conc. 33.2 g/dL (33.0-37.0); Mean Corpuscular Hgb 31.6 pg (27.0-31.0); Mean Corpuscular Volume 95.1 fL (81.0-99.0); Nucleated Red Blood Cells % 0 %; Platelet Count 466 10^3/uL (130-400); Red Blood Cell Count 3.26 10^6/uL (4.20-5.40); Red Cell Dist. Width 12.8 % (11.5-14.5); White Blood Cell Count 7.7 10^3/uL (4.8-10.8)
[2025-01-13 10:21] LABS: ALT (SGPT) 17 U/L (0-35); AST (SGOT) 20 U/L (14-36); Albumin 3.1 g/dl (3.5-5.0); Alkaline Phosphatase 80 U/L (38-126); Blood Urea Nitrogen 11 mg/dl (7-17); Carbon Dioxide 29 mmol/L (22-30); Chloride 105 mmol/L (98-107); Direct Bilirubin 0.2 mg/dl (0.0-0.4); Glucose 95 mg/dl (70-99); Potassium 4.5 mmol/L (3.5-5.1); Sodium 139 mmol/L (135-145); Total Bilirubin 0.5 mg/dl (0.2-1.3); Total Protein 6.2 g/dl (6.3-8.2); eGFR > 60.00
[2025-01-13 10:56] LABS: Erythrocyte Sed Rate 81 mm/hour (0-20)
== END ==
LOC: OLABN 08:51
PROVIDERS: ATTENDING PHYSICIAN Student in an Organized Health Care Education/Training Program
DX: T84.53XA Infection and inflammatory reaction due to internal right knee prosthesis, initial encounter (principal)
CPT/HCPCS: 36415; 80053; 82248; 85025; 85652; 86140

== ENCOUNTER → 2025-02-14 09:01 | Outpatient (REF) | payer OTHER, SELFPAY ==
[2025-02-14 10:25] LABS: % Basophils 2.4 % (0-2); % Eosinophils 7.7 % (0-6); % Lymphocytes 29.8 % (20.5-51.1); % Monocytes 12.3 % (1.7-9.3); % Neutrophils 47.8 % (42.2-75.2); Absolute Basophils 0.1 10^3/uL (0-0.2); Absolute Eosinophils 0.3 10^3/uL (0-0.7); Absolute Lymphocytes 1.2 10^3/uL (1.2-3.4); Absolute Monocytes 0.5 10^3/uL (0.1-0.6); Hematocrit 36.1 % (37.0-47.0); Mean Corp Hgb Conc. 33.2 g/dL (33.0-37.0); Mean Corpuscular Hgb 29.9 pg (27.0-31.0); Mean Corpuscular Volume 89.8 fL (81.0-99.0); Mean Platelet Volume 9.2 fL (7.4-10.4); Nucleated Red Blood Cells % 0 %; Platelet Count 336 10^3/uL (130-400); Red Blood Cell Count 4.02 10^6/uL (4.20-5.40); Red Cell Dist. Width 12.8 % (11.5-14.5); White Blood Cell Count 4.2 10^3/uL (4.8-10.8)
[2025-02-14 12:11] LABS: Erythrocyte Sed Rate 71 mm/hour (0-20)
== END ==
LOC: REG 09:01
PROVIDERS: ATTENDING PHYSICIAN Physician Assistant Surgical; FAMILY PHYSICIAN Family Medicine
DX: T84.53XD Infection and inflammatory reaction due to internal right knee prosthesis, subsequent encounter (principal)
CPT/HCPCS: 36415; 85025; 85652; 86140

== ENCOUNTER → 2025-03-02 10:36 | Outpatient (REF) | payer OTHER, SELFPAY ==
[2025-03-02 12:02] LABS: % Basophils 2.2 % (0-2); % Eosinophils 3.8 % (0-6); % Immature Granulocytes 0.2 % (0-0.5); % Lymphocytes 31.5 % (20.5-51.1); % Monocytes 12.2 % (1.7-9.3); % Neutrophils 50.1 % (42.2-75.2); Absolute Basophils 0.1 10^3/uL (0-0.2); Absolute Eosinophils 0.2 10^3/uL (0-0.7); Absolute Lymphocytes 1.4 10^3/uL (1.2-3.4); Absolute Monocytes 0.6 10^3/uL (0.1-0.6); Absolute Neutrophils 2.3 10^3/uL (1.4-6.5); Hematocrit 42.9 % (37.0-47.0); Hemoglobin 13.8 g/dL (12.0-16.0); Mean Corp Hgb Conc. 32.2 g/dL (33.0-37.0); Mean Corpuscular Hgb 29.1 pg (27.0-31.0); Mean Corpuscular Volume 90.3 fL (81.0-99.0); Mean Platelet Volume 9.4 fL (7.4-10.4); Nucleated Red Blood Cells % 0 %; Platelet Count 285 10^3/uL (130-400); Red Blood Cell Count 4.75 10^6/uL (4.20-5.40); Red Cell Dist. Width 12.7 % (11.5-14.5); White Blood Cell Count 4.5 10^3/uL (4.8-10.8)
[2025-03-02 14:02] LABS: Erythrocyte Sed Rate 17 mm/hour (0-20)
== END ==
LOC: REG 10:36
PROVIDERS: ATTENDING PHYSICIAN Physician Assistant Surgical; FAMILY PHYSICIAN Specialist
DX: T84.53XD Infection and inflammatory reaction due to internal right knee prosthesis, subsequent encounter (principal)
CPT/HCPCS: 36415; 85025; 85652; 86140

== ENCOUNTER → 2025-07-08 11:29 | Outpatient (REF) | payer OTHER, SELFPAY ==
[2025-07-08 12:55] LABS: Hematocrit 41.9 % (37.0-47.0); Hemoglobin 14.2 g/dL (12.0-16.0); Mean Corp Hgb Conc. 33.9 g/dL (33.0-37.0); Mean Corpuscular Volume 89.5 fL (81.0-99.0); Nucleated Red Blood Cells % 0 %; Platelet Count 238 10^3/uL (130-400); Red Cell Dist. Width 12.6 % (11.5-14.5)
[2025-07-08 13:25] LABS: ALT (SGPT) 15 U/L (0-35); AST (SGOT) 22 U/L (14-36); Albumin 4.3 g/dl (3.5-5.0); Alkaline Phosphatase 73 U/L (38-126); Blood Urea Nitrogen 15 mg/dl (7-17); Calcium 9.9 mg/dl (8.4-10.2); Carbon Dioxide 28 mmol/L (22-30); Chloride 104 mmol/L (98-107); Glucose 116 mg/dl (70-99); Potassium 4.0 mmol/L (3.5-5.1); Sodium 137 mmol/L (135-145); Total Protein 7.1 g/dl (6.3-8.2); eGFR > 60.00
[2025-07-08 13:27] LABS: C-Reactive Protein < 5.00 mg/L (0.0-10.00)
== END ==
LOC: REG 11:29
PROVIDERS: ATTENDING PHYSICIAN Physician Assistant Surgical; FAMILY PHYSICIAN Family Medicine; OTHER PHYSICIAN Internal Medicine Infectious Disease
DX: Z96.651 Presence of right artificial knee joint (principal)
CPT/HCPCS: 36415; 80053; 85025; 85652; 86140

== ENCOUNTER → 2025-07-11 08:36 | Outpatient (REF) | payer OTHER, SELFPAY | LOC: RAD 08:36 | PROVIDERS: ATTENDING PHYSICIAN Registered Nurse; FAMILY PHYSICIAN Family Medicine | DX: M25.552 Pain in left hip (principal) | CPT/HCPCS: 72110; 73502 ==

== ENCOUNTER → 2025-09-08 13:17 | Outpatient (REF) | payer OTHER, SELFPAY | LOC: HWWDC 13:17 | PROVIDERS: ATTENDING PHYSICIAN Family Medicine | DX: Z12.31 Encounter for screening mammogram for malignant neoplasm of breast (principal) | CPT/HCPCS: 77063; 77067 ==